=== PATIENT | male | born 1970 | race Caucasian/White ===

== ENCOUNTER 2017-02-01 17:14 | Inpatient (IN) | payer OTHER ==
[~2017-02-01] VITALS: Ht 167.6 cm; Wt 108.9 kg
[~2017-02-01 17:14] MED LIST: ACETAMINOPHEN500 M4 PO; ATIVAN 2 MG. TAB2 MG PO; ATIVAN0.5 MG PO; CEFTRIAXON2 GM/50 M1 IV; CEFTRIAXONE500 MG IV; CYCLOBENZAPRINE10 M1 PO; CYCLOBENZAPRINE5 M2 PO; FERROUS SULFAT325 M3 PO; FOLIC ACID 1 MG PO; FOLIC ACID1 M1 PO; HYDROXYZINE HCL25 M2 PO; IBUPROFEN800 M1 PO; LIDODERM1 EACH EXT; LISINOPRIL20 M1 PO; LISINOPRIL20 MG PO; METFORMIN HCL500 M3 PO; METFORMIN500 MG PO; METOPROLOL TART25 M1 PO; MORPHINE S10 MG/1 M1 IV; MULTI-DAY VITA1 EACH PO; MULTIVITAMIN1 TAB PO; NALTREXONE HCL50 M1 PO; NOVOLOG100 UNIT/2 SC; ONGLYZA5 M1 PO; ONGLYZA5 MG PO; OXYCODONE HCL5 M1 PO; OXYCODONE-ACET1 EACH PO; PAROXETINE HCL20 M1 PO; PAROXETINE20 MG PO; PERCOCET 5-3251 EACH PO; PREDNISONE10 M2 PO; PREDNISONE20 M1 PO; SIMVASTATIN40 M1 PO; SIMVASTATIN40 MG PO; THIAMINE HCL50 M1 PO; TRAMADOL HCL50 M1 PO; VITAMIN B1100 MG PO; ZOLPIDEM TARTRAT5 MG PO; [UNRECOGNIZED DRUG - CODE] IV
--- NOTE | 2017-02-01 17:21 | NUR ---
PT BIBA FROM HOME AFTER BEING FOUND UNRESPONSIVE ON THE FLOOR OF HIS HOME. PT A&O 3/4, GCS 14. PT DOES NOT REMEBER THE INCIDENT NOR EVENTS LEADING UP TO. DENIED HISTORY OF SIEZURE AND SYNCOPAL EPISODES. DENIED HAVING ANY COMPLAINTS. NO OBVIOUS TRAUMATIC INJURY NOTED. PT ADMITTED TO DRINKING MULTIPLE BEERS. DENIED ILLICIT DRUG USE. ROMINA KNOX AT BEDSIDE FOR EVAL.
[2017-02-01 17:23] VITALS: BP 101/59
--- NOTE | 2017-02-01 17:34 | ED AMS/SEIZURE/WEAK/DIZZY ---
History of Present Illness General Chief Complaint: Altered Mental Status Stated Complaint: UNRESPONSIVE? AT HOME, NOW ALERT Source: patient, EMS Exam Limitations: no limitations Vital Signs & Intake/Output Vital Signs & Intake/Output Vital Signs Date Time Temp Pulse Resp B/P B/P Pulse O2 O2 Flow FiO2 Mean Ox Delivery Rate 02/03 1558 98.0 106 18 128/84 93 05/ 0844 104 132/90 05/ 0840 104 132/90 05/ 0800 98.5 98 22 142/90 93 Room Air 02/03 0600 120 05/ 0400 98.4 120 17 124/78 05/ 0301 120 17 134/76 05/ 0230 122 05/ 0000 96 Room Air 2.0L 02/02 2300 98.4 122 20 138/76 97 Room Air 02/02 2100 125 / 2000 120 20 130/78 ED Intake and Output 02/03 0000 02/02 1200 Intake Total 2394.0 2080 Output Total 800 Balance 2394.0 1280 Intake, IV 1599.0 1600 Intake, Oral 795 480 Output, Urine 800 Allergies Coded Allergies: No Known Allergies (05/04/16) Reconcile Medications Cyclobenzaprine HCl (Unknown Strength) TABLET (Unknown Dose) UNKNOWN ( Reported) Ferrous Sulfate 325 MG TABLET 325 MG PO DAILY VITAMIN SUPPORT (Reported) Lisinopril 20 MG TABLET 20 MG PO DAILY HIGH BLOOD PRESSURE (Reported) Metformin HCl 1,000 MG TABLET 1 TAB PO BID DM (Reported) Multivitamin (Multi-Day Vitamins) 1 EACH TABLET 1 TAB PO DAILY VITAMIN SUPPORT (Reported) Paroxetine HCl 20 MG TABLET 20 MG PO DAILY DEPRESSION (Reported) Saxagliptin (Onglyza) 5 MG TABLET 5 MG PO DAILY DIABETES (Reported) Simvastatin (Simvastatin*) 40 MG TABLET 40 MG PO DAILY HIGH CHOLESTROL ( Reported) Triage Note: PT CHLOE FROM HOME AFTER BEING FOUND UNRESPONSIVE ON THE FLOOR OF HIS HOME. PT A&O 3/4, GCS 14. PT DOES NOT REMEBER THE INCIDENT NOR EVENTS LEADING UP TO. DENIED HISTORY OF SIEZURE AND SYNCOPAL EPISODES. DENIED HAVING ANY COMPLAINTS. NO OBVIOUS TRAUMATIC INJURY NOTED. PT ADMITTED TO DRINKING MULTIPLE BEERS. DENIED ILLICIT DRUG USE. ROMINA KNOX AT BEDSIDE FOR EVAL. Triage Nurses Notes Reviewed? yes Onset: Abrupt Duration: day(s): (1), better, constant Timing: recent history Injury Environment: home Severity: moderate Severity Numbers: 1 No Modifying Factors: none Associated Symptoms: denies HPI: 46 Year old male with history of diabetes, history of alcohol abuse and anxiety /depression, discitis/osteomyelitis at L3-L4 presents to the ER after he was found unresponsive on the floor of his home. On arrival the pt arrives awake and oriented x 3. he denies any complaints. no history of similar episodes in thep ast. he reports to having 3 beers today, he denies any other drug use. the patient does not remember passing out. no chest pain, palpitaitons, dizziness, lightheadedness, ventura, nausea vomiting, abdominal pain. the patient denies any complaints at this time, he states he was in his normal state of health today. no history of withdrawal seizures in the past. no recent black or bloody stools (ALAN SWENSON) Past History Travel History Traveled to [place] past 21 day No Medical History Any Pertinent Medical History? 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 No (ALAN SWENSON) Review of Systems Review of Systems Constitutional: Reports: see HPI. All Other Systems: Reviewed and Negative Comments Review of systems: See HPI, All other systems negative. Constitutional, no chills no fever, no malaise no weight loss HEENT: No visual changes no sore throat no congestion, no ear pain Cardiovascular: No chest pain , no palpitation Skin: no rashes, no change in skin Respiratory: No dyspnea no cough no sputum GI: No nausea no vomiting, no diarrhea, no bloating/constipation : No dysuria No hematuria, no frequency, no discharge Muscle skeletal: No joint pain, no joint swelling, no back pain Neurologic: No numbness no headache Psych: No stress Heme/endocrine: No bruising Immunology: No lymphadenopathy (ALAN SWENSON) Physical Exam Physical Exam General Appearance: well developed/nourished, alert, awake Comments: Well-developed well-nourished person in no acute distress HEENT: Normal EENT exam; PERRL, EOMI, no nystagmus. HEAD is atraumatic. moist mucous membranes. Neck: Supple,normal range of motion Back: Nontender, no CVA tenderness. Full range of motion Cardiovascular: Regular rate and rhythms no murmurs rubs Respiratory: Chest nontender.There were no bony deformities, no asymmetry. No respiratory distress. Patient speaking in full complete sentences. Breath sounds clear to auscultation bilaterally: NO W/R/R Abdomen: Soft, nontender nondistended, no appreciable organomegaly. Normal bowel sounds. No rebound/guarding, No appreciable enlargement of the abdominal aorta, No ascites. Extremity: No edema, full range of motion of extremities, normal and equal pulses bilaterally, 5 out of 5 strength noted to bilateral upper and lower extremities Neuro: Alert oriented x3, motor sensory normal, cranial nerves II through XII grossly intact. There were no obvious focal neurologic abnormalities. Skin: No appreciable rash on exposed skin, skin is warm and dry. Psych: Mood and affect is normal, memory and judgment is normal. Core Measures ACS in differential dx? Yes CVA/TIA Diagnosis: No Severe Sepsis Present: No Septic Shock Present: No (ALAN SWENSON) Progress Differential Diagnosis: SYNCOPE DRUG INTOXICATION ALCOHOL INTOXICATION ELECTROLYTE ABNORMALITY DEHYDRATION ACUTE mi ARRHYTHMIA Plan of Care: Orders Procedure Date/time Status MAGNESIUM 02/04 06 Active HEPATIC FUNCTION PANEL 02/04 06 Active BASIC ELECTROLYTES PLUS BUN&CR 02/04 06 Active Turn and Reposition 02/03 0930 Active Skin Integrity Protocol 02/03 0930 Active URINALYSIS 02/03 0747 Complete Therapeutic Exercise 02/03 UNK Complete PT EVAL LOW COMPLEX 20 MIN 02/03 UNK Complete Gait Training 02/03 UNK Complete Restraint- Medical 02/03 UNK Active PSYCHIATRIC CONSULT 02/03 UNK Active Current Medications Sig/Diogo Start time Last Medication Dose Stop Time Status Admin Tramadol HCl 50 MG Q6 PRN 02/02 1730 AC 02/03 (Ultram) 0038 Acetaminophen 650 MG Q6P PRN 02/02 1715 AC (Tylenol) Enoxaparin Sodium 40 MG DAILY 02/02 1000 AC 02/03 (Lovenox) 0837 Ferrous Sulfate 325 MG DAILY 02/02 1000 AC 02/03 (Feosol) 0837 Folic Acid 1 MG DAILY 02/02 1000 AC 02/03 (Folic Acid) 0837 Lisinopril 20 MG DAILY 02/02 1000 AC 02/03 (Prinivil) 0844 Multivitamins 1 TAB DAILY 02/02 1000 AC 02/03 (Theragran Vitamins) 0838 Paroxetine HCl 20 MG DAILY 02/02 1000 AC 02/03 (Paxil) 0838 Thiamine HCl 100 MG DAILY 02/02 1000 AC 02/03 (Vitamin B1) 0838 Lorazepam 0 Q1P PRN 02/02 0830 AC 02/03 (Ativan) 1217 Insulin Aspart 0 TIDAC 02/02 0800 AC 02/02 (NovoLOG) 1702 Phenol 2 SPRAY Q2P PRN 02/02 0100 AC 02/02 (Chloraseptic 0201 (Phenaseptic) Hughson) Lorazepam 2 MG Q6H 02/01 2115 AC 02/03 (Ativan) 1639 Laboratory Tests 02/03/17 0700: Urine Color YEL, Urine Clarity CLEAR, Urine pH 6.5, Ur Specific Louise 1.010, Urine Protein NEG, Urine Ketones TRACE H, Urine Nitrite NEG, Urine Bilirubin NEG@ICTO, Urine Urobilinogen 2.0 H, Ur Leukocyte Esterase NEG, Ur Microscopic EXAM NOT REQUIRED, Urine Hemoglobin NEG, Urine Glucose NEG 02/03/17 0636: Anion Gap 10, Estimated GFR > 60, BUN/Creatinine Ratio 7.5, Magnesium 1.7, Total Bilirubin 4.2 H, Direct Bilirubin 2.3 H, AST 307 H, ALT 139 H, Alkaline Phosphatase 105, Total Protein 6.0 L, Albumin 2.7 L Microbiology 02/03 07 URINE ROUT: Urine Culture - RECD Labs ordered old records reviewed case discussed with Dr. Vo agrees with plan D/W THE PT AT [facility] ALL OF HIS LAB RESULTS AND NEED FOR ADMISSION. SODIUM 129 IS NEW, PT REPORTS TO NOT EATING TODAY AND HAD "A FEW BEERS" (LISETTE VANEGAS,ALAN) Diagnostic Imaging: Viewed by Me: CT Scan. Discussed w/RAD: CT Scan. Radiology Impression: PATIENT: DEBRA GORDILLO JR PRESENT AGE: 46 PATIENT ACCOUNT NO: [id number] : 68 LOCATION: [facility] ORDERING PHYSICIAN: ALAN VANEGAS SERVICE DATE: 02/01/17 EXAM TYPE: CAT - CT ABD & PELVIS W IV CONTRAST EXAMINATION: CT ABDOMEN AND PELVIS WITH CONTRAST CLINICAL INFORMATION: Syncope, elevated LFTs. Evaluate for liver pathology. COMPARISON: Most recent lumbar spine MRI dated 07/31/2016. TECHNIQUE: Multidetector volumetric imaging was performed of the abdomen and pelvis before and after the IV administration of 94 mL of Optiray 320 intravenous contrast. Sagittal and coronal reformatted images were obtained on the technologist's workstation. DLP: 1115.77 mGy-cm. FINDINGS: LUNG BASES: The visualized lung bases are unremarkable. LIVER, GALLBLADDER, AND BILIARY TREE: The liver is normal in size and shape. The liver is diffusely hypodense and hypoenhancing, consistent with fatty infiltration. No focal hepatic lesion or biliary ductal dilatation is present. The gallbladder is unremarkable with no evidence of radiopaque gallstones, gallbladder wall thickening, or obvious pericholecystic inflammatory changes. PANCREAS: Unremarkable. SPLEEN: Unremarkable. There is a 7 mm probable splenule. ADRENAL GLANDS: Unremarkable. KIDNEYS AND URETERS: The kidneys are normal in size, shape, and attenuation. A 1.5 cm probable cyst is seen within the midpole of the left kidney. No hydronephrosis, hydroureter, or calculi seen. There is mild nonspecific bilateral perinephric stranding. BLADDER : Nondistended. GASTROINTESTINAL TRACT: Postsurgical changes related to a Mikey- en-Y gastric bypass are noted. Fluid is noted within the excluded stomach, which could represent a communication with the surgically-created gastric pouch. A fluoroscopic upper GI examination could be considered to help further evaluate if clinically indicated. There is no large or small bowel obstruction. There are a few scattered sigmoid colon diverticula without adjacent inflammatory change. The appendix is unremarkable. There is no intra-abdominal free air or free fluid. ABDOMINAL WALL: There is a small periumbilical hernia. LYMPH NODES: Normal. VASCULAR: Contrast opacifies the abdominal aorta and its branch vessels. There is no abdominal aortic dilatation. PELVIC VISCERA: The prostate and seminal vesicles are unremarkable. OSSEOUS STRUCTURES: There is osseous erosion at the anterior aspect of L4 as well as at the posterior aspect of L3, with associated degenerative changes. These findings are consistent with the patient' s history of discitis osteomyelitis, and do not appear significantly changed when compared to the prior examination. There is no associated soft tissue mass or fluid collection. IMPRESSION: 1. Fatty infiltration of the hepatic parenchyma. No hepatic lesion identified. No intrahepatic or extrahepatic biliary ductal dilatation. 2. No hydronephrosis or nephrolithiasis. 3. Mikey-en-Y gastric bypass. Fluid within the excluded stomach, which could represent a communication with the surgically-created gastric pouch. A fluoroscopic upper GI examination could be considered to help further evaluate if clinically indicated. 4. No large or small bowel obstruction. Normal appendix. 5. Osseous changes at L3-L4, consistent with the patient's history of discitis/ osteomyelitis. No associated soft tissue fluid collection or mass. DICTATED BY: RICARDA RAMACHANDRAN MD DATE/TIME DICTATED:02/01/171945 [employer] ATTENDANT:OLGA DATE/TIME TRANSCRIBED:02/01/171945 CONFIDENTIAL, DO NOT COPY WITHOUT APPROPRIATE AUTHORIZATION. <Electronically signed in Other Vendor System> SIGNED BY: RICARDA RAMACHANDRAN MD 02/01/172006 Initial ED EKG: normal intervals, normal p-waves, normal QRS complex, normal sinus rhythm Prior EKG: unchanged Rhythm Strip: normal sinus rhythm (ALAN SWENSON) Departure Departure Time of Disposition: 1945 Disposition: STILL A PATIENT Condition: Stable Clinical Impression Primary Impression: Alcoholic ketosis Secondary Impressions: Alcoholic hepatitis, Hyponatremia, Lactic acidosis Referrals: ALO BELL,MARIO Reyes (PCP/Family) Departure Forms: Customer Survey General Discharge Information Admission Note Spoke With: NATHALIE BELL,GRADY Tate Documentation of Exam: Documentation of any treatments & extenuating circumstances including Concerns Regarding Discharge (functional status, medication knowledge or non-compliance, living conditions, etc.) that warrant an admission rather than observation: TREND LABS, TELEL MONITORING, GI CONSULT, PREMATURE DISCHARGE WOULD BE MEDICALLY HARMFUL (ALAN SWENSON) PA/SIZE STAMPER Co-Sign Statement Statement: ED Attending supervision documentation- [X] I saw and evaluated the patient. I have also reviewed all the pertinent lab results and diagnostic results. I agree with the findings and the plan of care as documented in the PA's/SIZE STAMPER's documentation. [X] I have reviewed the ED Record and agree with the PA's/SIZE STAMPER's documentation. [] Additions or exceptions (if any) to the PAs/SIZE STAMPER's note and plan are summarized below: [] (SHANEL BELL,MADHAV Bryant)
--- NOTE | 2017-02-01 18:01 | NUR ---
BLOOD SAMPLES OBTAINED AND SENT TO LAB ([facility])
[2017-02-01] MEDS ORDERED: METFORMIN HCL1000 M1 PO (18:04)
[2017-02-01] MEDS ORDERED: CYCLOBENZAPRINE10 M1 (18:05)
[2017-02-01 18:48] LABS: ABSOLUTE BASOPHIL COUNT 0 /CUMM (0.0-0.2); ABSOLUTE EOSINOPHIL COUNT 0 /CUMM (0.0-0.7); ABSOLUTE LYMPH COUNT 1.8 /CUMM (1.2-3.4); ABSOLUTE MONOCYTE COUNT 0.4 /CUMM (0.10-0.60); BASOPHIL % 0.3 % (0.0-2.0); EOSINOPHIL % 0.1 % (0-5); GRANULOCYTE % 57.3 % (42.2-75.2); MEAN CORPUSCULAR HGB CONC 34.3 G/DL (33.0-37.0); MEAN CORPUSCULAR VOLUME 84.5 FL (80.0-94.0); PLATELET COUNT 141 /CUMM (130-400); RBC DISTRIBUTION WIDTH 19.1 % (11.5-14.5); WHITE BLOOD CELL COUNT 5.2 /CUMM (4.8-10.8)
--- NOTE | 2017-02-01 18:56 | NUR ---
20G IV ESTABLISHED IN L[facility]. BLOOD SAMPLES OBTAINED AND SENT TO LAB ([facility]). PT TO CT VIA STRETCHER
--- NOTE | 2017-02-01 19:44 | NUR ---
CRITICAL TEST RESULTS [id number] DEBRA GORDILLO JR 46 M TESTS AND RESULTS: LACTIC 9.3 Results received and read back by: NICOLE CRONIN Results received date and time: 02/01/171943 The following provider was notified of the results, and read the results back: ROMINA DE LA CRUZ Notified date and time: 02/01/17 at 1944
[2017-02-01 19:46] VITALS: BP 106/53
--- NOTE | 2017-02-01 19:46 | NUR ---
PT RETURNED FROM CAT SCAN. NS INFUSING. PT CIWA 5 AT THIS TIME, WILL CONTINUE TO MONITOR.
--- NOTE | 2017-02-01 19:56 | NUR ---
PT HAS BED ASSIGNMENT 183-1. BED IS NOT CLEAN YET.
--- NOTE | 2017-02-01 20:07 | CT SCAN REPORT ---
EXAMINATION: CT ABDOMEN AND PELVIS WITH CONTRAST CLINICAL INFORMATION: Syncope, elevated LFTs. Evaluate for liver pathology. COMPARISON: Most recent lumbar spine MRI dated 07/31/2016. TECHNIQUE: Multidetector volumetric imaging was performed of the abdomen and pelvis before and after the IV administration of 94 mL of Optiray 320 intravenous contrast. Sagittal and coronal reformatted images were obtained on the technologist's workstation. DLP: 1115.77 mGy-cm. FINDINGS: LUNG BASES: The visualized lung bases are unremarkable. LIVER, GALLBLADDER, AND BILIARY TREE: The liver is normal in size and shape. The liver is diffusely hypodense and hypoenhancing, consistent with fatty infiltration. No focal hepatic lesion or biliary ductal dilatation is present. The gallbladder is unremarkable with no evidence of radiopaque gallstones, gallbladder wall thickening, or obvious pericholecystic inflammatory changes. PANCREAS: Unremarkable. SPLEEN: Unremarkable. There is a 7 mm probable splenule. ADRENAL GLANDS: Unremarkable. KIDNEYS AND URETERS: The kidneys are normal in size, shape, and attenuation. A 1.5 cm probable cyst is seen within the midpole of the left kidney. No hydronephrosis, hydroureter, or calculi seen. There is mild nonspecific bilateral perinephric stranding. BLADDER: Nondistended. GASTROINTESTINAL TRACT: Postsurgical changes related to a Mikey-en-Y gastric bypass are noted. Fluid is noted within the excluded stomach, which could represent a communication with the surgically-created gastric pouch. A fluoroscopic upper GI examination could be considered to help further evaluate if clinically indicated. There is no large or small bowel obstruction. There are a few scattered sigmoid colon diverticula without adjacent inflammatory change. The appendix is unremarkable. There is no intra-abdominal free air or free fluid. ABDOMINAL WALL: There is a small periumbilical hernia. LYMPH NODES: Normal. VASCULAR: Contrast opacifies the abdominal aorta and its branch vessels. There is no abdominal aortic dilatation. PELVIC VISCERA: The prostate and seminal vesicles are unremarkable. OSSEOUS STRUCTURES: There is osseous erosion at the anterior aspect of L4 as well as at the posterior aspect of L3, with associated degenerative changes. These findings are consistent with the patient's history of discitis osteomyelitis, and do not appear significantly changed when compared to the prior examination. There is no associated soft tissue mass or fluid collection. IMPRESSION: 1. Fatty infiltration of the hepatic parenchyma. No hepatic lesion identified. No intrahepatic or extrahepatic biliary ductal dilatation. 2. No hydronephrosis or nephrolithiasis. 3. Mikey-en-Y gastric bypass. Fluid within the excluded stomach, which could represent a communication with the surgically-created gastric pouch. A fluoroscopic upper GI examination could be considered to help further evaluate if clinically indicated. 4. No large or small bowel obstruction. Normal appendix. 5. Osseous changes at L3-L4, consistent with the patient's history of discitis/osteomyelitis. No associated soft tissue fluid collection or mass.
--- NOTE | 2017-02-01 20:15 | NUR ---
BANANA BAG INFUSING.
--- NOTE | 2017-02-01 20:21 | NUR ---
REPORT GIVEN TO SALEEM COLVIN ON TELEMETRY.
--- NOTE | 2017-02-01 20:36 | History & Physical ---
REMI BELL,[facility] 02/01/172034: General Information and [facility] MD Statement: I have seen and personally examined DEBRA RENEE JR and documented this H&P. The patient is a 46 year old M who presented with a patient stated chief complaint of [was found unresponsive on the floor]. Source of Information: patient, old records Exam Limitations: no limitations History of Present Illness: Mr. Renee is a 46 year-old very pleasant male with past medical history significant for diabetes mellitus, alcohol abuse, anxiety, depression, gastric bypass 13 years ago, discitis/ spinal osteomyelitis L3L4 was on IV antibiotic last dose 07/24/2016, who BIBA after was found unresponsive on the floor at home. Patient reported that since the morning today he felt very lethargic and fatigue , he went outside to bring some grocery for his kids (2 boys 12 autism and 13 ADDH year old) when he came back he dropped something on the floor and leant forward to grab it and at that time he lost his consciousness, he denied any head trauma, seizure activity, bladder or stool incontinence. Patient was found by his son Ricardo who called the patient's parent (live upstairs) and the mother called ambulance. Patient denied any previous history of unconsciousness, seizure including alcohol related seizure. Patient has extensive history of alcohol abuse associated with visual hallucinations, used to drink 30 cans of beer daily, last detoxification was last year at [facility], patient was sober since last discharge January until August 2016 when he restarted to drink but cut down to 5-6 beer per day. His last drink was today 02/01/17 at 2 PM in afternoon 6 beers despite feeling lethargic. Patient is never a smoker, denied drug use although he was zolpidem addict and quit in 2012. Patient denied taking any other medication except the prescribed ones. Patient denied any chest pain, palpitation, headache, visual changes, weakness or numbness, abdominal pain, nausea or vomiting, liver disease, dysuria. Patient reported productive cough of clear sputum, denied blood, left lower extremity swelling. Patient has past medical history of left lower extremity swelling that subsided after he stopped drinking and started again when he started drinking in August 2016. Patient has ongoing life stressor being unemployed, his children illness, taking care of his elderly parents. Allergies/Medications Allergies: Coded Allergies: No Known Allergies (05/04/16) Home Med list Cyclobenzaprine HCl (Unknown Strength) TABLET (Unknown Dose) UNKNOWN ( Reported) Ferrous Sulfate 325 MG TABLET 325 MG PO DAILY VITAMIN SUPPORT (Reported) Lisinopril 20 MG TABLET 20 MG PO DAILY HIGH BLOOD PRESSURE (Reported) Metformin HCl 1,000 MG TABLET 1 TAB PO BID DM (Reported) Multivitamin (Multi-Day Vitamins) 1 EACH TABLET 1 TAB PO DAILY VITAMIN SUPPORT (Reported) Paroxetine HCl 20 MG TABLET 20 MG PO DAILY DEPRESSION (Reported) Saxagliptin (Onglyza) 5 MG TABLET 5 MG PO DAILY DIABETES (Reported) Simvastatin (Simvastatin*) 40 MG TABLET 40 MG PO DAILY HIGH CHOLESTROL ( Reported) Past History Travel History Traveled to [place] past 21 day No Medical History Neurological: spinal osteomyelitis at L3-L4 level EENT: NONE Cardiovascular: hypertension, hyperlipidemia Respiratory: NONE Gastrointestinal: NONE Hepatic: NONE Renal: NONE Musculoskeletal: CARPAL TUNNEL Psychiatric: alcohol dependence, anxiety, depression Endocrine: diabetes Blood Disorders: NONE Cancer(s): NONE SHAPER AND PRESSER/Reproductive: NONE History of MRSA: No History of VRE: No History of CDIFF: No Surgical History Surgical History: GASTRIC BYPASS ABDOMINOPLASTY carpal tunnel Past Family/Social History Family History Relations & Conditions if any MOTHER FH: diabetes mellitus FH: hyperlipidemia FH: hypertension FATHER FH: hypertension Psychosocial History Who Do You Live With? child Services at Home: None ETOH Use: alcoholic Illicit Drug Use: denies illicit drug use Functional Ability ADLs Independent: dressing, eating, toileting, bathing. Ambulation: independent, walker IADLs Independent: shopping, housework, finances, food prep, telephone, transportation , medication admin. Employment History Employment Unemployed Review of Systems Review of Systems Constitutional: Reports: see HPI. Exam & Diagnostic Data Last 24 Hrs of Vital Signs/I&O Vital Signs Date Time Temp Pulse Resp B/P B/P Pulse O2 O2 Flow FiO2 Mean Ox Delivery Rate 02/01 2135 98.0 118 20 130/78 02/01 2058 98.6 118 20 130/64 97 Room Air 02/01 1946 77 20 106/53 02/01 1945 77 20 10653 97 Room Air 02/01 1723 96.2 110 20 101/59 02/01 1723 96.2 110 20 101/59 99 Room Air Physical Exam General Appearance Alert, Oriented X3, Cooperative, No Acute Distress Skin No Rashes, No Breakdown, No Significant Lesion Skin Temp/Moisture Exam: Warm/Dry HEENT Atraumatic, PERRLA, EOMI, Mucous Membr. moist/pink, dilated reactive bilateral pupils Neck Supple, No JVD Lymphatic no cervical lymphadenopathy Cardiovascular Regular Rate, Normal S1, Normal S2, No Murmurs, tachycardia Lungs Clear to Auscultation, Normal Air Movement Abdomen Normal Bowel Sounds, Soft, No Tenderness Neurological Normal Gait, Normal Speech, Strength at 5/5 X4 Ext, Normal Tone, Sensation Intact, Cranial Nerves 3-12 NL, Reflexes 2+, bilateral fine tremors Extremities No Clubbing, No Cyanosis, No Edema, Normal Pulses, left leg slightly larger than right leg Assessment/Plan Assessment: Mr. Renee is a 46 year-old very pleasant male with past medical history significant for diabetes mellitus, alcohol abuse associated with visual hallucination, no history of alcohol-related seizure, anxiety, depression, discitis/osteomyelitis L3L4 was on IV antibiotic last dose 07/24/2016 who BIBA after was found unresponsive on the floor at home. Last alcohol drink was 02/01 on day of admission 2 PM afternoon 6 beers. On admission Vital signs temperature 96.2, pulse 110, respiration 20 with saturation 99% on room air, blood pressure 101/59 Labs WBC 5.2, H&H 13.1/38, platelet 141, sodium 129, potassium 4, chloride 90, bicarbonate 16, anion gap 23, BUN 11/creatinine 1.2, sugar 196, serum osmolality 345, lactic acid 9.3, calcium 8, AST 555, ALT 171, bilirubin 2 alkaline phosphatase 120, albumin 3.3, troponin less than 0.01, are mainly is 42, lipase 346, urine toxicology serum alcohol 246, acetone level negative Imaging CT abdomen and pelvis with IV contrast on 02/01/70 IMPRESSION: 1. Fatty infiltration of the hepatic parenchyma. No hepatic lesion identified. No intrahepatic or extrahepatic biliary ductal dilatation. 2. No hydronephrosis or nephrolithiasis. 3. Mikey-en-Y gastric bypass. Fluid within the excluded stomach, which could represent a communication with the surgically-created gastric pouch. A fluoroscopic upper GI examination could be considered to help further evaluate if clinically indicated. 4. No large or small bowel obstruction. Normal appendix. 5. Osseous changes at L3-L4, consistent with the patient's history of discitis/ osteomyelitis. No associated soft tissue fluid collection or mass. Problem list #Syncope #Alcohol abuse associated with lactic acidosis mostly type 2 #Elevated liver enzymes #Hyponatremia #Diabetes mellitus #Anxiety and depression #Chronic anemia due to alcoholism Plan: Admit to telemetry floor and managed the following problems #Syncope -Etiology could be alcohol versus vasa vagal due to dehydration -Patient has elevated lactic acid which mostly because of alcohol. Patient was found to have dry mucous membranes on examination but no signs of cold extremity or altered mental status that might suggest severe hypovolemia that could cause elevated lactic acid -No history of seizure including alcohol-related seizure, no reports for seizure -like activity, urine or stool incontinence, head trauma -On presentation patient was found to have tachycardia 110 and low blood pressure 101/59 -IV fluid resuscitation with normal saline at 150 mL/h -Fall precaution -Obtain orthostatic measurement #Alcohol abuse -Extensive history of alcohol abuse, Last drink was 02/01 on day of admission 2 PM afternoon 6 beers. -Urine toxicology positive for alcohol, lactic acidosis 9.3, anion gap elevated 23 -Ativan 2 mg Q 4 -CIWA for prn Ativan -Banana bag, thiamine, folic acid and multivitamin -Obtain vitamin B12 level -Trend lactic acid Q3 hours -Elevated liver enzymes AST, ALT, bilirubin, low albumin -Check coagulation profile -Elevated lipase -CT abdomen pelvis with contrast revealed fatty liver and unremarkable pancreas study -Repeat liver function tests and lipase amylase in a.m. -Avoid hepatotoxic medication including statin #Diabetes mellitus associated with hyponatremia -Glucose 196, sodium 129 -Corrected sodium 131 -IV fluid normal saline at rate of 150 mL/h, avoid correcting sodium more than 6 -8 points per 24-hour -Urine negative for ketones -Accu-Chek -NovoLog sliding scale 3 times a day before meals and bedtime -Obtain hemoglobin A1c -Continue lisinopril #Anxiety and depression -Continue home dose paroxetine 20 mg daily -In presence of current stressor, obtain psych evaluation #Chronic anemia due to alcoholism -Continue ferrous sulfate 325 mg daily -Guaiac stool #Code full #DVT prophylaxis lovenox #Diet diabetic diet As Ranked By This Provider Problem List: 1. Alcohol intoxication 2. Depression 3. Hyperlipidemia 4. Lactic acidosis 5. Alcoholic hepatitis 6. Hyponatremia Core Measures/Miscellaneous Acute Coronary Syndrome ACS Diagnosis: No Cerebrovascular Accident CVA/TIA Diagnosis: No Congestive Heart Failure CHF Diagnosis: No Venous Thromboembolism VTE Risk Factors: Age > 40 No [facility] V[facility] prophylaxis d/t: No contraindications No VTE Pharm Prophylaxis d/t: No contraindications VTE Diagnosis: No VTE Type: NONE VTE Confirmed by (Test): NONE Severe Sepsis Severe Sepsis Present: No Septic Shock Septic Shock Present: No Miscellaneous Documentation Attending Case Discussed With: NATHALIE BELL,GRADY Tate Primary Care Physician: MARIO PRAJAPATI MD Patient sees these Specialists Primary care physician Level of Patient Care: Telemetry CAMPOLINDA 02/01/172035: Resident Review Statement Resident Statement: examined this patient, discussed with internal medicine physician assistant, agreed with internal medicine physician assistant Other Findings: is a 46 yo man with PMHx. significant for diabetes, HTN, HLD, chronic back pain, history of alcohol abuse and anxiety/depression, discitis/ osteomyelitis at L3-L4 presented to ED after being found unresponsive. Patient dosen't remember the episode, he was found laying on the floor at his home by his kids, who inform his parents who lived in the second floor and 911 notified by them, according to the patient he wokup today am starving for food, he was having dry heaves with a small amount of clear phlegm, he went to kitchen to prepare a meal, he bent to catch a dish fallen on the floor, but he fells and passed out, he mentioned that the duration was not long but couldn't specified, he hit his head but no other body injury. He did lost control on his bowel movement, no incontinence. He report visula hallucination in the form of spider crawling on his legs and on the floor. Patient last detox was last year, he remains with no alcohol for about 3 months, but his back issue was acting up again, which causing sever pain, he started drinking again about 5-7 beers a day, he mention that he had alot of stress related to be without job and also related to sickness of his kids, his last drink was today in the afternoon. Patient mntioned history of drinking 30 beers per day prior to his detox at [facility] last year, he cuts down on his alcohol drinking but still he drinks 5-7 beers aday Vitals, examination, Labs and imaging as above Assessment: #Episode of unresponsiveness #Alcohol withdrawal #Lactic acidosis #Transaminitis #Hyponatremia most likely related to malnutrition (Beer protomania) #Depression #Anxiety #Hx. of HTN, HLD #Hx. of DM #Hx. of Rt.foot drop, with nerve conduction issue #Hx. of Osteomyelitis of the back Plan: Will admitt the patient to telemetry floor Will order CIWA protocol Ativan per CIWA 2mg po Q6H Ativan schedulaed dose Will start banana bag Will start IV hydration with iv NS @ 75ml/hr Folic acid, multivitamins Cycle troponin and EKG Will check LFT at am Will check coag. study Will send urinnalysis Will check serum, urine osmolality and urine sodium Will trend lactic acid Will continue home meds (Lisinopril, simvastatin, Paxil) Will hold oral hypoglycemic meds and start insulin sliding scale Achucheck TIDAC/HS Full code DVT ppx: SC Lovenox Update labs: Serum osmolality: 345 Urine osmolality: 394 Urine Na:50 Corrected Na 131mg/dl MILTON BELL,[facility] 02/02/17 2222: Attending MD Review Statement Attending Statement Attending MD Statement: examined this patient, discuss w/resident/PA/FORK LIFT TECHNICIAN, discussed with family, reviewed EMR data (avail), discussed with nursing
[2017-02-01 20:58] VITALS: BP 130/64
[2017-02-01 21:35] VITALS: BP 130/78
--- NOTE | 2017-02-01 22:40 | NUR ---
PT ADMITTED TO FLOOR FROM ER VIA STRETCHER. ORIENTED TO ROOM, CALL RAHMAN, STAFF. ALERT AND ORIENTED X3. RA. SINUS TACH ON THE MONITOR. DENIES PAIN. SKIN CDI. CIWA PROTOCOL. FLUIDS RUNNING ORDERED. WILL CONTINUE TO MONITOR.
[2017-02-01 23:14] LABS: PT 11.1 SEC (9.4-12.5); PTT 29 SEC (25-37)
[2017-02-02] VITALS (20 sets, daily range): BP systolic 120–148; BP diastolic 66–84
--- NOTE | 2017-02-02 09:07 | NUR ---
Physical Therapy: Consult received and chart reviewed. Pt sinus tachycardia in 140's at this time with a CIWA between 16-22. Will defer PT evaluation at this time and follow up as patient is more appropriate. Spoke with pt's nurse who is in agreement.
--- NOTE | 2017-02-02 09:09 | Admission Certification ---
Admission Certification Certification Statement - As attending physician, I certify that at the time of - admission, based on clinical presentation, severity of - symptoms, need for further diagnostic testing and - therapeutic interventions, and risk of adverse outcomes - without in-hospital treatment, in my clinical assessment, - this patient requires an acute hospital stay for a minimum - of two nights or longer. I have also considered psychsocial - factors such as support system, advanced age, financial - issues, cognitive issues, and failed out-patient treatments, - past re-admission history, safety of patient, and lack of - compliance as applicable. Specific rationale supporting this admission is: Alcoholism, syncope
--- NOTE | 2017-02-02 09:23 | PN- Att Addend ---
Attending Addendum Attending Brief Note Patient is a having hallucinations and tremors. General Appearance: Tremors Skin: Grossly normal HEENT: PEERLA Neck: Supple, No JVD Cardiovascular: Regular Rate, Normal S1, Normal S2, No Murmurs Lungs: Clear to Auscultation, Normal Air Movement Abdomen: Normal Bowel Sounds, Soft, No Tenderness Neurological: Tremors Extremities: No Clubbing, No Cyanosis, No Edema Assessment Patient is having acute withdrawals and some hallucinations. He is currently on high-dose Ativan. We will continue to detox and observe. Metabolic acidosis and ketosis likely secondary to plan intoxication and starvation ketosis. Lactic acid level has improved and labs are pending today. Plan Continue Ativan Continue IV hydration Accu-Cheks and insulin sliding scale Psych and director social service evaluation Continue current meds Current Medications Sig/Diogo Start time Last Medication Dose Route Stop Time Status Admin Acetaminophen 650 MG Q12 02/02 1000 AC 02/02 PO 0835 Atorvastatin Calcium 40 MG 1700 02/02 1700 CAN PO Cyanocobalamin/ 1 BAG DAILY 02/02 0300 AC Thiamine/Pyridoxine IV Dextrose/Water 1,000 ML Cyanocobalamin/ 1 BAG ONCE ONE 02/01 1845 DC 02/01 Thiamine/Pyridoxine IV 02/02 0244 2015 Dextrose/Water 1,000 ML Enoxaparin Sodium 40 MG DAILY 02/02 1000 AC 02/02 SC 0907 Ferrous Sulfate 325 MG DAILY 02/02 1000 AC 02/02 PO 0906 Folic Acid 1 MG DAILY 02/01 2100 DC 02/01 PO 2226 Insulin Aspart 0 TIDAC 02/02 0800 AC 02/02 SC 0907 Lisinopril 20 MG DAILY 02/02 1000 AC 02/02 PO 0907 Lorazepam 0 Q1P PRN 02/02 0830 AC 02/02 IV 0907 Lorazepam 1 MG Q1 NEEDED PRN 02/02 0745 DC 02/02 IV 0750 Lorazepam 1 MG Q2 HRS NEEDED PRN 02/02 0630 DC 02/02 IV 0617 Lorazepam 2 MG Q6H 02/01 2115 AC 02/02 PO 0315 Lorazepam 1 MG Q6H PRN 02/01 2115 DC 02/02 IV 0510 Multivitamins 1 TAB DAILY 02/01 2100 DC 02/01 PO 2226 Paroxetine HCl 20 MG DAILY 02/02 1000 AC 02/02 PO 0906 Patient Medication 1 UNIT ONE NR 02/015 DC Teaching ED 02/01 213 Phenol 2 SPRAY Q2P PRN 02/02 0100 AC 02/02 EXT 0201 Sodium Chloride 1,000 ML .[id number] 02/01 2100 AC 02/01 IV 2300 Sodium Chloride 1,000 ML BOLUS ONE 02/01 1845 DC 02/01 IV 02/01 1944 194 Thiamine HCl 100 MG DAILY 02/01 2100 DC PO Laboratory Tests 02/02 02/01 02/01 0440 2302 2230 Chemistry Lactic Acid (0.7 - 2.1 mmol/L) 2.3 H 6.1 H Troponin I (<0.11 ng/ml) 0.02 Urines Urine Color (YEL,AMB,STR) YEL Urine Clarity (CLEAR) CLEAR Urine pH (5.0 - 8.0) 6.0 Ur Specific Cascade (1.001 - 1.035) 1.010 Urine Protein (NEG,<30 MG/DL) NEG Urine Ketones (NEG) NEG Urine Nitrite (NEG) NEG Urine Bilirubin (NEG) NEG Urine Urobilinogen (0.1 - 1.0 EU/dl) 0.2 Ur Leukocyte Esterase (NEG) NEG Ur Microscopic SEDIMENT EXAMINED Urine RBC (0 - 5 /HPF) RARE Ur Epithelial Cells (NONE,FEW) RARE Urine Hemoglobin (NEG) TRACE-INTACT H Urine Glucose (N MG/DL) 100 H 02/010 1853 1758 Chemistry Sodium (137 - 145 mmol/L) 129 L Potassium (3.5 - 5.1 mmol/L) 4.0 Chloride (98 - 107 mmol/L) 90 L Carbon Dioxide (22 - 30 mmol/L) 16 L Anion Gap (5 - 16) 23 H BUN (9 - 20 mg/dL) 11 Creatinine (0.7 - 1.2 mg/dL) 1.2 Estimated GFR (>60 ml/min) > 60 BUN/Creatinine Ratio (7 - 25 %) 9.2 Glucose (65 - 99 mg/dL) 196 H Serum Osmolality (285 - 295 MOSM/KG) 345 H Lactic Acid (0.7 - 2.1 mmol/L) 9.3 H Calcium (8.4 - 10.2 mg/dL) 8.0 L Total Bilirubin (0.2 - 1.3 mg/dL) 2.0 H AST (17 - 59 U/L) 555 H ALT (21 - 72 U/L) 171 H Alkaline Phosphatase (< 127 U/L) 120 Troponin I (<0.11 ng/ml) < 0.01 Total Protein (6.3 - 8.2 g/dL) 6.8 Albumin (3.5 - 5.0 g/dL) 3.3 L Globulin (1.9 - 4.2 gm/dL) 3.5 Albumin/Globulin Ratio (1.1 - 2.2 %) 0.9 L Amylase (30 - 110 U/L) 42 Lipase (23 - 300 U/L) 346 H Coagulation PT (9.4 - 12.5 SEC) 11.1 INR (0.90 - 1.17) 1.06 APTT (25 - 37 SEC) 29 Hematology CBC w Diff NO MAN DIFF REQ WBC (4.8 - 10.8 /CUMM) 5.2 RBC (4.70 - 6.10 /CUMM) 4.50 L Hgb (14.0 - 18.0 G/DL) 13.1 L Hct (42 - 52 %) 38.0 L MCV (80.0 - 94.0 FL) 84.5 MCH (27.0 - 31.0 PG) 29.0 RDW (11.5 - 14.5 %) 19.1 H Plt Count (130 - 400 /CUMM) 141 MPV (7.4 - 10.4 FL) 9.0 Gran % (42.2 - 75.2 %) 57.3 Lymphocytes % (20.5 - 51.1 %) 33.8 Monocytes % (1.7 - 9.3 %) 8.5 Eosinophils % (0 - 5 %) 0.1 Basophils % (0.0 - 2.0 %) 0.3 Absolute Granulocytes (1.4 - 6.5 /CUMM) 3.0 Absolute Lymphocytes (1.2 - 3.4 /CUMM) 1.8 Absolute Monocytes (0.10 - 0.60 /CUMM) 0.4 Absolute Eosinophils (0.0 - 0.7 /CUMM) 0 Absolute Basophils (0.0 - 0.2 /CUMM) 0 PUBS MCHC (33.0 - 37.0 G/DL) 34.3 Toxicology Urine Opiates Screen (>2000 NG/ML) < 100.00 Methadone Screen (>300 NG/ML) 56 Barbiturate Screen (>200 NG/ML) < 60 Ur Phencyclidine Scrn (>25 NG/ML) < 6.00 Amphetamines Screen (>1000 NG/ML) < 100 U Benzodiazepines Scrn (>200 NG/ML) < 85 Urine Cocaine Screen (>300 NG/ML) < 50 Urine Cannabis Screen (>50 NG/ML) < 5.00 Serum Alcohol (<10 MG/DL) 246.0 Acetone Level (NEGATIVE) NEGATIVE Urines Urine Osmolality (300 - 1000 MOSM/KG) 394 Ur Random Creatinine (mg/dL) 45.1 Ur Random Sodium (30 - 90 mmol/L) 50 Ur Random Potassium (mmol/L) 52.7 Fraction Sodium Excret (<1% %) 1.0 Vital Signs Date Time Temp Pulse Resp B/P B/P Pulse O2 O2 Flow FiO2 Mean Ox Delivery Rate 02/02 0907 125 127/66 02/02 0841 100.7 125 16 127/66 94 Room Air 02/02 0835 100.7 / 0800 Room Air 02/02 0800 100.7 129 20 138/72 05/ 0729 129 20 138/72 05/ 0729 129 20 138/72 05/ 0600 98.7 120 20 130/80 05/01 0500 98.9 124 20 134/80 05/01 0400 98.6 122 20 130/80 05/01 0200 98.5 120 20 130/80 05/01 0050 98.8 124 20 140/80 05/01 0017 98.8 122 20 136/80 97 05/01 0000 98.8 120 20 136/80 02/01 2135 98.0 118 20 130/78 02/01 2058 98.6 118 20 130/64 97 Room Air 02/01 1946 77 20 106/53 02/01 1945 77 20 106/53 97 Room Air 02/01 1723 96.2 110 20 101/59 02/01 1723 96.2 110 20 101/59 99 Room Air
--- NOTE | 2017-02-02 09:49 | PN- Housestaff ---
Subjective Follow-up For: Alcohol withdrawal Lactic acidosis Hyperbilirubinemia and Transaminitis Hyponatremia Subjective: This morning patient is alert, awake. He seems confused and hallucinating. Having tremors. He offers no complaints. Review of Systems Constitutional: Reports: see HPI. Objective Last 24 Hrs of Vital Signs/I&O Vital Signs Date Time Temp Pulse Resp B/P B/P Pulse O2 O2 Flow FiO2 Mean Ox Delivery Rate 02/02 0907 125 127/66 05/ 0841 100.7 125 16 127/66 94 Room Air 02/02 0835 100.7 02/02 0800 Room Air / 0800 100.7 129 20 138/72 05/ 0729 129 20 138/72 05/ 0729 129 20 138/72 / 0600 98.7 120 20 130/80 05/ 0500 98.9 124 20 134/80 05/ 0400 98.6 122 20 130/80 05/ 0200 98.5 120 20 130/80 05/ 0050 98.8 124 20 140/80 05/ 0017 98.8 122 20 136/80 97 05/ 0000 98.8 120 20 136/80 02/01 2135 98.0 118 20 130/78 02/018 98.6 118 20 130/64 97 Room Air 02/01 1946 77 20 106/53 02/01 1945 77 20 106/53 97 Room Air 02/01 1723 96.2 110 20 101/59 02/01 1723 96.2 110 20 101/59 99 Room Air Intake & Output 02/02 1600 02/02 0800 02/02 0000 Intake Total 2080 125 Output Total 800 500 Balance 1280 -375 Intake, IV 1600 125 Intake, Oral 480 Output, Urine 800 500 Patient 240 lb Weight Weight Reported by Patient Measurement Method Physical Exam General Appearance: Alert, No Acute Distress, tremulous, sweaty HEENT: dry mucous membranes Neck: Supple Cardiovascular: tachycardia Lungs: Clear to Auscultation Abdomen: Normal Bowel Sounds, Soft, No Tenderness Neurological: Normal Speech, Strength at 5/5 X4 Ext, Sensation Intact, Cranial Nerves 3-12 NL, tremors Extremities: No Edema Current Medications: Current Medications Sig/Diogo Start time Last Medication Dose Route Stop Time Status Admin Acetaminophen 650 MG Q12 02/02 1000 AC 02/02 PO 0835 Atorvastatin Calcium 40 MG 1700 02/02 1700 CAN PO Cyanocobalamin/ 1 BAG DAILY 02/02 0300 AC Thiamine/Pyridoxine IV Dextrose/Water 1,000 ML Cyanocobalamin/ 1 BAG ONCE ONE 02/01 184 DC 02/01 Thiamine/Pyridoxine IV 02/024 2014 Dextrose/Water 1,000 ML Enoxaparin Sodium 40 MG DAILY 02/02 1000 AC 02/02 SC 0907 Ferrous Sulfate 325 MG DAILY 02/02 1000 AC 02/02 PO 0906 Folic Acid 1 MG DAILY 02/01 2100 DC 02/01 PO 2226 Insulin Aspart 0 TIDAC 02/02 0800 AC 02/02 SC 0907 Lisinopril 20 MG DAILY 02/02 1000 AC 02/02 PO 0907 Lorazepam 0 Q1P PRN 02/02 0830 AC 02/02 IV 0907 Lorazepam 1 MG Q1 NEEDED PRN 02/02 0745 DC 02/02 IV 0750 Lorazepam 1 MG Q2 HRS NEEDED PRN 02/02 0630 DC 02/02 IV 0617 Lorazepam 2 MG Q6H 02/01 2115 AC 02/02 PO 0315 Lorazepam 1 MG Q6H PRN 02/01 211 DC 02/02 IV 0510 Multivitamins 1 TAB DAILY 02/01 2100 DC 02/01 PO 2226 Paroxetine HCl 20 MG DAILY 02/02 1000 AC 02/02 PO 0906 Patient Medication 1 UNIT ONE NR 02/01 211 DC Teaching ED 02/01 2130 Phenol 2 SPRAY Q2P PRN 02/02 0100 AC 02/02 EXT 0201 Sodium Chloride 1,000 ML .[id number] 02/01 2100 AC 02/01 IV 2300 Sodium Chloride 1,000 ML BOLUS ONE 02/01 1845 DC 02/01 IV 02/01 194 1943 Thiamine HCl 100 MG DAILY 02/01 2100 DC PO Last 24 Hrs of Lab/Williams Results Last 24 Hrs of Labs/Mics: Laboratory Tests 02/02/17 0440: Lactic Acid 2.3 H, Troponin I 0.02 02/01/17 2302: Lactic Acid 6.1 H 02/01/170: Urine Color YEL, Urine Clarity CLEAR, Urine pH 6.0, Ur Specific [place] 1.010, Urine Protein NEG, Urine Ketones NEG, Urine Nitrite NEG, Urine Bilirubin NEG, Urine Urobilinogen 0.2, Ur Leukocyte Esterase NEG, Ur Microscopic SEDIMENT EXAMINED, Urine RBC RARE, Ur Epithelial Cells RARE, Urine Hemoglobin TRACE- INTACT H, Urine Glucose 100 H 02/01/17 2230: Urine Opiates Screen < 100.00, Methadone Screen 56, Barbiturate Screen < 60, Ur Phencyclidine Scrn < 6.00, Amphetamines Screen < 100, U Benzodiazepines Scrn < 85, Urine Cocaine Screen < 50, Urine Cannabis Screen < 5.00, Urine Osmolality 394, Ur Random Creatinine 45.1, Ur Random Sodium 50, Ur Random Potassium 52.7, Fraction Sodium Excret 1.0 02/01/17 1853: Lactic Acid 9.3 H, PT 11.1, INR 1.06, APTT 29 02/01/17 1758: Anion Gap 23 H, Estimated GFR > 60, BUN/Creatinine Ratio 9.2, Glucose 196 H, Serum Osmolality 345 H, Calcium 8.0 L, Total Bilirubin 2.0 H, AST 555 H, ALT 171 H, Alkaline Phosphatase 120, Troponin I < 0.01, Total Protein 6.8, Albumin 3.3 L, Globulin 3.5, Albumin/Globulin Ratio 0.9 L, Amylase 42, Lipase 346 H, CBC w Diff NO MAN DIFF REQ, RBC 4.50 L, MCV 84.5, MCH 29.0, RDW 19.1 H, MPV 9.0, Gran % 57.3, Lymphocytes % 33.8, Monocytes % 8.5, Eosinophils % 0.1, Basophils % 0.3, Absolute Granulocytes 3.0, Absolute Lymphocytes 1.8, Absolute Monocytes 0.4, Absolute Eosinophils 0, Absolute Basophils 0, PUBS MCHC 34.3, Serum Alcohol 246.0, Acetone Level NEGATIVE Microbiology 02/02 829 URINE ROUT: Urine Culture - ORD 02/02 829 LOWER RESP: Respiratory Culture - ORD 02/02 829 LOWER RESP: Gram Stain - ORD 02/02 2044 BLOOD: Blood Culture - RECD 02/01 2003 BLOOD: Blood Culture - RECD Orders CIWA Score (last 24 hrs): 16 Lines/Diet/Fluids Fluids/Infusions: NS Assessment/Plan Assessment: Mr. Renee is a 46 year-old with past medical history significant for diabetes mellitus, hypertension, hyperlipidemia, alcohol abuse, anxiety, depression, gastric bypass 13 years ago, discitis/ spinal osteomyelitis L3L4 has been admitted on general medicine floor for: Problem list 1. Alcohol detox. Last drink on 02/01/2017. Serum alcohol 246. CIWA score 16 this morning 2. Lactic acidosis secondary to alcohol abuse 3. Hyperbilirubinemia and transaminitis secondary to alcohol abuse 4. Hyponatremia In the setting of hyperglycemia, corrected sodium 131. Plan * Monitor vitals closely * Watch for DTs/withdrawal seizures * Continue CIWA protocol, scheduled Ativan and Ativan as needed per CIWA * Monitor electrolytes daily * Continue IV fluids * Trend lactic acid * Monitor LFTs daily * Monitor sodium levels * farmworker livestock consult * Multivitamins/folic acid/thiamine * Hold statin for now * NovoLog insulin sliding scale while inpatient. Hold metformin and Onglyza * Subcutaneous Lovenox for DVT prophylaxis * Diabetic diet * Accu-Cheks before each meal and at bedtime * Full code Problem List: 1. Alcohol intoxication Pain Ratin Pain Location: none Pain Goal: Remain pain free Pain Plan: tylenol Tomorrow's Labs & Rationales: CMP DVT/Prophylaxis: pharmacological
[2017-02-03 03:01] VITALS: BP 134/76
[2017-02-03 04:00] VITALS: BP 124/78
[2017-02-03 08:00] VITALS: BP 142/90
[2017-02-03 08:40] VITALS: BP 132/90
--- NOTE | 2017-02-03 09:33 | PN- Att Addend ---
Attending Addendum Attending Brief Note Patient is lethargic and sleepy this morning General Appearance: Tremors Skin: Grossly normal HEENT: PEERLA Neck: Supple, No JVD Cardiovascular: Regular Rate, Normal S1, Normal S2, No Murmurs Lungs: Clear to Auscultation, Normal Air Movement Abdomen: Normal Bowel Sounds, Soft, No Tenderness Neurological: Tremors Extremities: No Clubbing, No Cyanosis, No Edema Assessment Patient is having acute withdrawals and some hallucinations. He is currently on high-dose Ativan. We will continue to detox and observe. Metabolic acidosis, ketosis and elevated LFTs likely secondary to acute alcoholic intoxication and starvation ketosis. Plan Continue Ativan Low threshold for ICU transfers if requiring high-dose Ativan Replete potassium Accu-Cheks and insulin sliding scale Psych and social and human services assistant evaluation Continue current meds Current Medications Sig/Idogo Start time Last Medication Dose Route Stop Time Status Admin Acetaminophen 650 MG Q6P PRN 02/02 1715 AC PO Acetaminophen 650 MG Q12 02/02 1000 DC 02/02 PO 0835 Acetaminophen 650 MG Q12P PRN 02/02 0945 DC PO Cyanocobalamin/ 1 BAG DAILY 02/02 0300 DC Thiamine/Pyridoxine IV Dextrose/Water 1,000 ML Enoxaparin Sodium 40 MG DAILY 02/02 1000 AC 02/03 SC 0837 Ferrous Sulfate 325 MG DAILY 02/02 1000 AC 02/03 PO 0837 Folic Acid 1 MG DAILY 02/02 1000 AC 02/03 PO 0837 Insulin Aspart 0 TIDAC 02/02 0800 AC 02/02 SC 1702 Lisinopril 20 MG DAILY 02/02 1000 AC 02/03 PO 0844 Lorazepam 2 MG ONCE ONE 02/02 2345 DC 02/02 IM 02/02 2346 2345 Lorazepam 0 Q1P PRN 02/02 0830 AC 02/03 IV 0235 Lorazepam 2 MG Q6H 02/01 2115 AC 02/03 PO 0839 Multivitamins 1 TAB DAILY 02/02 1000 AC 02/03 PO 0838 Paroxetine HCl 20 MG DAILY 02/02 1000 AC 02/03 PO 0838 Phenol 2 SPRAY Q2P PRN 02/02 0100 AC 02/02 EXT 0201 Sodium Chloride 1,000 ML .Q10H 02/01 2100 DC 02/02 IV 02/02 2009 1211 Thiamine HCl 100 MG DAILY 02/02 1000 AC 02/03 PO 0838 Tramadol HCl 50 MG Q6 PRN 02/02 1730 AC 02/03 PO 0038 Laboratory Tests 02/03 02/03 0700 0636 Chemistry Sodium (137 - 145 mmol/L) 131 L Potassium (3.5 - 5.1 mmol/L) 3.3 L Chloride (98 - 107 mmol/L) 96 L Carbon Dioxide (22 - 30 mmol/L) 25 Anion Gap (5 - 16) 10 BUN (9 - 20 mg/dL) 6 L Creatinine (0.7 - 1.2 mg/dL) 0.8 Estimated GFR (>60 ml/min) > 60 BUN/Creatinine Ratio (7 - 25 %) 7.5 Magnesium (1.6 - 2.3 mg/dL) 1.7 Total Bilirubin (0.2 - 1.3 mg/dL) 4.2 H Direct Bilirubin (< 0.4 mg/dL) 2.3 H AST (17 - 59 U/L) 307 H ALT (21 - 72 U/L) 139 H Alkaline Phosphatase (< 127 U/L) 105 Total Protein (6.3 - 8.2 g/dL) 6.0 L Albumin (3.5 - 5.0 g/dL) 2.7 L Urines Urine Color (YEL,AMB,STR) YEL Urine Clarity (CLEAR) CLEAR Urine pH (5.0 - 8.0) 6.5 Ur Specific [place] (1.001 - 1.035) 1.010 Urine Protein (NEG,<30 MG/DL) NEG Urine Ketones (NEG) TRACE H Urine Nitrite (NEG) NEG Urine Bilirubin (NEG) NEG@ICTO Urine Urobilinogen (0.1 - 1.0 EU/dl) 2.0 H Ur Leukocyte Esterase (NEG) NEG Ur Microscopic EXAM NOT REQUIRED Urine Hemoglobin (NEG) NEG Urine Glucose (N MG/DL) NEG Vital Signs Date Time Temp Pulse Resp B/P B/P Pulse O2 O2 Flow FiO2 Mean Ox Delivery Rate 02/04 844 104 132/90 02/03 0840 104 132/90 02/03 0800 98.5 98 22 142/90 93 Room Air 02/03 0600 120 05/ 0400 98.4 120 17 124/78 02/03 0301 120 17 134/76 02/03 0230 122 05/ 0000 96 Room Air 2.0L 05/01 2300 98.4 122 20 138/76 97 Room Air 05/01 2100 125 05/01 2000 120 20 130/78 05/01 1825 98.3 118 20 120/84 05/01 1800 98.3 118 20 120/84 05/01 1649 99.1 118 20 139/69 94 Room Air 05/01 1600 99.1 118 20 139/69 05/01 1455 98.4 126 20 148/74 05/01 1400 98.4 126 20 148/74 05/01 1200 98.6 137 20 128/76 05/01 1200 98.6 137 20 128/76 05/01 1000 98.0 134 20 124/78 05/01 0934 98.1
--- NOTE | 2017-02-03 13:36 | PN- Housestaff ---
Subjective Follow-up For: Alcohol withdrawal Lactic acidosis Hyperbilirubinemia and Transaminitis Hyponatremia Subjective: Patient was very agitated last night and he was given total of 8 mg of Ativan. This morning he is very confused drowsy, and on bilateral soft restraints. Review of Systems Constitutional: Reports: see HPI. Objective Last 24 Hrs of Vital Signs/I&O Vital Signs Date Time Temp Pulse Resp B/P B/P Pulse O2 O2 Flow FiO2 Mean Ox Delivery Rate 02/03 0844 104 132/90 / 0840 104 132/90 / 0800 98.5 98 22 142/90 93 Room Air / 0600 120 / 0400 98.4 120 17 124/78 / 0301 120 17 134/76 / 0230 122 / 0000 96 Room Air 2.0L 02/02 2300 98.4 122 20 138/76 97 Room Air 02/02 2100 125 / 2000 120 20 130/78 02/02 1825 98.3 118 20 120/84 02/02 1800 98.3 118 20 120/84 02/02 1649 99.1 118 20 139/69 94 Room Air 02/02 1600 99.1 118 20 139/69 02/02 1455 98.4 126 20 148/74 02/02 1400 98.4 126 20 148/74 Intake & Output 02/03 1600 / 0800 02/03 0000 Intake Total 540 1176.5 Output Total 600 Balance -60 1176.5 Intake, IV 300 831.5 Intake, Oral 240 345 Output, Urine 600 Physical Exam General Appearance: confused Cardiovascular: tachycardia Lungs: Clear to Auscultation Extremities: No Edema Current Medications: Current Medications Sig/Diogo Start time Last Medication Dose Route Stop Time Status Admin Acetaminophen 650 MG Q6P PRN 02/02 1715 AC PO Acetaminophen 650 MG Q12P PRN 02/02 0945 DC PO Enoxaparin Sodium 40 MG DAILY 02/02 1000 AC 02/03 SC 0837 Ferrous Sulfate 325 MG DAILY 02/02 1000 AC 02/03 PO 0837 Folic Acid 1 MG DAILY 02/02 1000 AC 02/03 PO 0837 Insulin Aspart 0 TIDAC 02/02 0800 AC 02/02 SC 1702 Lisinopril 20 MG DAILY 02/02 1000 AC 02/03 PO 0844 Lorazepam 2 MG ONCE ONE 02/02 2345 DC 02/02 IM 02/02 2346 2345 Lorazepam 0 Q1P PRN 02/02 0830 AC 02/03 IV 1217 Lorazepam 2 MG Q6H 02/01 2115 AC 02/03 PO 0839 Multivitamins 1 TAB DAILY 02/02 1000 AC 02/03 PO 0838 Paroxetine HCl 20 MG DAILY 02/02 1000 AC 02/03 PO 0838 Patient Medication 1 ED .STK-MED ONE 02/03 1341 DC Teaching ED 02/03 1342 Phenol 2 SPRAY Q2P PRN 02/02 0100 02/02 EXT 0201 Potassium Chloride 60 MEQ ONCE ONE 02/03 1345 UNVr PO 02/03 1346 Sodium Chloride 1,000 ML .Q10H 02/01 2100 DC 02/02 IV 02/02 2009 121 Thiamine HCl 100 MG DAILY 02/02 1000 02/03 PO 0838 Tramadol HCl 50 MG Q6 PRN 02/02 1730 AC 02/03 PO 0038 Last 24 Hrs of Lab/Williams Results Last 24 Hrs of Labs/Mics: Laboratory Tests 02/03/17 0700: Urine Color YEL, Urine Clarity CLEAR, Urine pH 6.5, Ur Specific [place] 1.010, Urine Protein NEG, Urine Ketones TRACE H, Urine Nitrite NEG, Urine Bilirubin NEG@ICTO, Urine Urobilinogen 2.0 H, Ur Leukocyte Esterase NEG, Ur Microscopic EXAM NOT REQUIRED, Urine Hemoglobin NEG, Urine Glucose NEG 02/03/17 0636: Anion Gap 10, Estimated GFR > 60, BUN/Creatinine Ratio 7.5, Magnesium 1.7, Total Bilirubin 4.2 H, Direct Bilirubin 2.3 H, AST 307 H, ALT 139 H, Alkaline Phosphatase 105, Total Protein 6.0 L, Albumin 2.7 L Microbiology 02/03 07 URINE ROUT: Urine Culture - RECD Orders CIWA Score (last 24 hrs): 29 last night 10 this am Assessment/Plan Assessment: Mr. Renee is a 46 year-old with past medical history significant for diabetes mellitus, hypertension, hyperlipidemia, alcohol abuse, anxiety, depression, gastric bypass 13 years ago, discitis/ spinal osteomyelitis L3L4 has been admitted on general medicine floor for: Problem list 1. Alcohol detox. Last drink on 02/01/2017. Serum alcohol 246. CIWA score 16 this morning 2. Lactic acidosis secondary to alcohol abuse 3. Hyperbilirubinemia and transaminitis secondary to alcohol abuse 4. Hyponatremia, sodium 131. 5. Hypokalemia, potassium 3.3 Plan * Monitor vitals closely * Watch for DTs/withdrawal seizures * Low threshold for ICU transfer for Ativan drip if becomes more delirious and high CIWA scores requiring high dose of Ativan * Continue CIWA protocol, scheduled Ativan and Ativan as needed per CIWA * Monitor electrolytes daily and replete accordingly * Monitor LFTs daily * garbage worker consult * Multivitamins/folic acid/thiamine * Holding statin for now * NovoLog insulin sliding scale while inpatient. Holding metformin and Onglyza * Subcutaneous Lovenox for DVT prophylaxis * Diabetic diet * Accu-Cheks before each meal and at bedtime * Full code Problem List: 1. Alcohol intoxication Pain Ratin Pain Location: NONE Pain Goal: Pain 4 or less Pain Plan: tylenol Tomorrow's Labs & Rationales: CMP DVT/Prophylaxis: pharmacological Consulting Request: Consulting Specialty: Psychiatry
--- NOTE | 2017-02-03 14:41 | Cons- Psychiatry ---
Psychiatric Consult Date of Consult: 02/03/17 Reason for Consult: "confusion, depression, ETOH detox." History of Present Illness: Identifying Info: 46-year-old male presents to [facility] emergency department by ambulance post being found unresponsive at home. Admitted to medicine for alcohol detox. CC: (pt currently sedated) HPI: Information obtained from house staff and medical record. Patient has a history of alcohol abuse several years, at one point consuming over 30 cans of beer daily. He has had multiple detoxes in hospital and has maintained sobriety in the past for several months. At present reports consuming 6 drinks daily with last drink 02/01/17 at 2 PM. The patient was initially able to precipitate in care on admission was A/Ox3 however subsequently developed delirium scoring as high as 29 on the CIWA scale. He has been confused and responding to auidtory and visual hallucinations. He has been aggitated at time but responding to ativan well at present. PMH: Please see the H&P for a complete listing Diabetes mellitus, gastric bypass 13 years ago, discitis/spinal osteomyelitis L3 Past Psych History: -Outpatient Paxil from PCP [facility] from [phone] -Inpatient [facility] 2009 1 previous consult eval durring detox in 2014 Family Psych History: Unobtained Substance History Current ETOH, 6 drinks daily. Sober from January - August 2016 Former Zolpidem abuse, has not used since 2012 -Treatment Previously Naltrexone tx Detox at [facility] last year IOP, date? Detox at in 10/2014 & on CPS 2010 Previous AA participant Family Substance History: Ex- ETOH Social: Lives with 2 adoptive sons, one with autism age 12 and one with ADHD age 13, at a house with his mother who lives upstairs. 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 Abuse/Trauma: Unobtained Current Home Psychotropic Medications: Paxil 20mg daily Current Hospital Psychotropic Medications: Med Lorazepam 2 MG PO Q6H 02/01/17 2115 Lorazepam IV Q1P PRN 02/02/17 0830 Paroxetine HCl 20 MG PO DAILY 02/02/17 1000 Allergies: Coded Allergies: No Known Allergies (05/04/16) Current Medications: Current Medications Sig/Diogo Start time Last Medication Dose Route Stop Time Status Admin Acetaminophen 650 MG Q6P PRN 02/02 1715 AC PO Acetaminophen 650 MG Q12P PRN 02/02 0945 DC PO Enoxaparin Sodium 40 MG DAILY 02/02 1000 AC 02/03 SC 0837 Ferrous Sulfate 325 MG DAILY 02/02 1000 AC 02/03 PO 0837 Folic Acid 1 MG DAILY 02/02 1000 AC 02/03 PO 0837 Insulin Aspart 0 TIDAC 02/02 0800 AC 02/02 SC 1702 Lisinopril 20 MG DAILY 02/02 1000 AC 02/03 PO 0844 Lorazepam 2 MG ONCE ONE 02/02 2345 DC 02/02 IM 02/02 2346 2345 Lorazepam 0 Q1P PRN 02/02 0830 AC 02/03 IV 1217 Lorazepam 2 MG Q6H 02/01 2115 AC 02/03 PO 0839 Magnesium Oxide 400 MG ONE ONE 02/03 1400 DC PO 02/03 1401 Multivitamins 1 TAB DAILY 02/02 1000 AC 02/03 PO 0838 Paroxetine HCl 20 MG DAILY 02/02 1000 AC 02/03 PO 0838 Patient Medication 1 ED .STK-MED ONE 02/03 1341 DC Teaching ED 02/03 1342 Phenol 2 SPRAY Q2P PRN 02/02 0100 AC 02/02 EXT 0201 Potassium Chloride 60 MEQ ONCE ONE 02/03 1345 DC PO 02/03 1346 Sodium Chloride 1,000 ML .Q10H 02/01 2100 DC 02/02 IV 02/02 2009 121 Thiamine HCl 100 MG DAILY 02/02 1000 AC 02/03 PO 0838 Tramadol HCl 50 MG Q6 PRN 02/02 1730 AC 02/03 PO 0038 Past History Past Medical History Neurological: spinal osteomyelitis at L3-L4 level EENT: NONE Cardiovascular: hypertension, hyperlipidemia Respiratory: NONE Gastrointestinal: NONE Hepatic: NONE Renal: NONE Musculoskeletal: CARPAL TUNNEL Psychiatric: alcohol dependence, anxiety, depression Endocrine: diabetes Blood Disorders: NONE Cancer(s): NONE CLERK 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/Reproductive: NONE Past Surgical History Surgical History: GASTRIC BYPASS ABDOMINOPLASTY carpal tunnel Psychosocial History Strengths/Capabilities: Treatment motivated, h/o periods of sobriety Physical Limitations (Interventions): Mutliple medical comorbidities Psychiatric Treatment History Psych Treatment Psychiatric Treatment Yes (as above) Diagnosis: Alcohol dependence, rule out anxiety disorder NOS, rule out depressive disorder NOS Risk Factors: high anxiety/distress, SA/MH hospitalized, substance abuse, poor impulse control, lack of outcome concern, male Substance Use/Abuse History Drug Use/Abuse Substances Used/Abused Yes (as above) Assessment/Plan Mental Status Mental Status Exam: Patient is unable to participate in interview Mental Status Exam Presentation/Appearance: Hospital garb, sleeping in bed Orientation: TRACY Sensorium: Sedated Eye contact: TRACY Affect: Flat Mood: TRACY Depression: TRACY Anxiety: TRACY Thought Content: TRACY staff reports repsonding to internal stimuli Thought Process: TRACY Speech: None Judgment: Impaired per staff report Insight:Impaired per staff report Cognition: Memory: TRACY Attention/Concentration: Poor Lab Results: Laboratory Tests QTc 481 today. 02/03/17 0700: Urine Color YEL, Urine Clarity CLEAR, Urine pH 6.5, Ur Specific [place] 1.010, Urine Protein NEG, Urine Ketones TRACE H, Urine Nitrite NEG, Urine Bilirubin NEG@ICTO, Urine Urobilinogen 2.0 H, Ur Leukocyte Esterase NEG, Ur Microscopic EXAM NOT REQUIRED, Urine Hemoglobin NEG, Urine Glucose NEG 02/03/17 0636: Anion Gap 10, Estimated GFR > 60, BUN/Creatinine Ratio 7.5, Magnesium 1.7, Total Bilirubin 4.2 H, Direct Bilirubin 2.3 H, AST 307 H, ALT 139 H, Alkaline Phosphatase 105, Total Protein 6.0 L, Albumin 2.7 L 02/02/17 0440: Lactic Acid 2.3 H, Troponin I 0.02 02/01/17 2302: Lactic Acid 6.1 H 02/01/17 2230: Urine Color YEL, Urine Clarity CLEAR, Urine pH 6.0, Ur Specific [place] 1.010, Urine Protein NEG, Urine Ketones NEG, Urine Nitrite NEG, Urine Bilirubin NEG, Urine Urobilinogen 0.2, Ur Leukocyte Esterase NEG, Ur Microscopic SEDIMENT EXAMINED, Urine RBC RARE, Ur Epithelial Cells RARE, Urine Hemoglobin TRACE- INTACT H, Urine Glucose 100 H 02/01/17 2230: Urine Opiates Screen < 100.00, Methadone Screen 56, Barbiturate Screen < 60, Ur Phencyclidine Scrn < 6.00, Amphetamines Screen < 100, U Benzodiazepines Scrn < 85, Urine Cocaine Screen < 50, Urine Cannabis Screen < 5.00, Urine Osmolality 394, Ur Random Creatinine 45.1, Ur Random Sodium 50, Ur Random Potassium 52.7, Fraction Sodium Excret 1.0 02/01/17 1853: Lactic Acid 9.3 H, PT 11.1, INR 1.06, APTT 29 02/01/17 1758: Anion Gap 23 H, Estimated GFR > 60, BUN/Creatinine Ratio 9.2, Glucose 196 H, Serum Osmolality 345 H, Calcium 8.0 L, Total Bilirubin 2.0 H, AST 555 H, ALT 171 H, Alkaline Phosphatase 120, Troponin I < 0.01, Total Protein 6.8, Albumin 3.3 L, Globulin 3.5, Albumin/Globulin Ratio 0.9 L, Amylase 42, Lipase 346 H, CBC w Diff NO MAN DIFF REQ, RBC 4.50 L, MCV 84.5, MCH 29.0, RDW 19.1 H, MPV 9.0, Gran % 57.3, Lymphocytes % 33.8, Monocytes % 8.5, Eosinophils % 0.1, Basophils % 0.3, Absolute Granulocytes 3.0, Absolute Lymphocytes 1.8, Absolute Monocytes 0.4, Absolute Eosinophils 0, Absolute Basophils 0, PUBS MCHC 34.3, Serum Alcohol 246.0, Acetone Level NEGATIVE Microbiology 02/03 0700 URINE ROUT: Urine Culture - RECD 02/02 829 LOWER RESP: Respiratory Culture - COLB 02/02 829 LOWER RESP: Gram Stain - COLB 02/02 2044 BLOOD: Blood Culture - RES 02/01 2003 BLOOD: Blood Culture - RES Diffential Diagnosis: Alcohol use disorder, severe Unspecified depressive disorder Unspecified anxiety disorder Impression: His 46-year-old male presents after losing consciousness in the context of alcohol intoxication, hyponatremia and lactic acidosis. He was intially A/Ox3 but developed delirium in the context of withdrawl. Today on approach pt is sedated and difficult to arouse. Will need to interview when less somnolent. He would likely benefit from ongoing dual diagnosis care post detox. Provisional Treatment Plan: 1. Continue CIWA protocol and medicate appropriately with Ativan. 2. Continue vitamin supplementation. 3. Consider restarting naltrexone if patient agrees to follow-up care. 4. Full psychiatric interview with recommendations to follow. 5. Appreciate social work referral for assistance in disposition planning. Thank you for including psychiatry in this case, we will continue to follow.
[2017-02-03 15:58] VITALS: BP 128/84
[2017-02-03 23:52] VITALS: BP 138/78
[2017-02-04 08:13] VITALS: BP 162/98
--- NOTE | 2017-02-04 09:33 | PN- Att Addend ---
Attending Addendum Attending Brief Note Patient is lethargic and sleepy this morning General Appearance: Tremors Skin: Grossly normal HEENT: PEERLA Neck: Supple, No JVD Cardiovascular: Regular Rate, Normal S1, Normal S2, No Murmurs Lungs: Clear to Auscultation, Normal Air Movement Abdomen: Normal Bowel Sounds, Soft, No Tenderness Neurological: Tremors Extremities: No Clubbing, No Cyanosis, No Edema Assessment Patient is having acute withdrawals and some hallucinations. He is currently on high-dose Ativan. We will continue to detox and observe. Metabolic acidosis, ketosis and elevated LFTs likely secondary to acute alcoholic intoxication and starvation ketosis. Plan Continue Ativan Low threshold for ICU transfers if requiring high-dose Ativan Replete potassium Accu-Cheks and insulin sliding scale Psych and social media campaign manager evaluation Continue current meds Current Medications Sig/Diogo Start time Last Medication Dose Route Stop Time Status Admin Acetaminophen 650 MG Q6P PRN 02/02 1715 AC PO Enoxaparin Sodium 40 MG DAILY 02/02 1000 AC 02/03 SC 0837 Ferrous Sulfate 325 MG DAILY 02/02 1000 AC 02/03 PO 0837 Folic Acid 1 MG DAILY 02/02 1000 AC 02/03 PO 0837 Insulin Aspart 0 TIDAC 02/02 0800 AC 02/02 SC 1702 Lisinopril 20 MG DAILY 02/02 1000 AC 02/03 PO 0844 Lorazepam 0 Q1P PRN 02/02 0830 AC 02/04 IV 0643 Lorazepam 2 MG Q6H 02/01 2115 AC 02/04 PO 0434 Magnesium Oxide 400 MG ONE ONE 02/03 1400 DC 02/03 PO 02/03 1401 1638 Multivitamins 1 TAB DAILY 02/02 1000 AC 02/03 PO 0838 Paroxetine HCl 20 MG DAILY 02/02 1000 AC 02/03 PO 0838 Patient Medication 1 ED .STK-MED ONE 02/03 1341 DC Teaching ED 02/03 1342 Phenol 2 SPRAY Q2P PRN 02/02 0100 AC 02/02 EXT 0201 Potassium Chloride 60 MEQ ONCE ONE 02/03 1345 DC 02/03 PO 02/03 1346 1639 Thiamine HCl 100 MG DAILY 02/02 1000 AC 02/03 PO 0838 Tramadol HCl 50 MG Q6 PRN 02/02 1730 AC 02/03 PO 0038 Laboratory Tests 02/04 0635 Chemistry Sodium (137 - 145 mmol/L) 133 L Potassium (3.5 - 5.1 mmol/L) 3.7 Chloride (98 - 107 mmol/L) 98 Carbon Dioxide (22 - 30 mmol/L) 27 Anion Gap (5 - 16) 8 BUN (9 - 20 mg/dL) 4 L Creatinine (0.7 - 1.2 mg/dL) 0.7 Estimated GFR (>60 ml/min) > 60 BUN/Creatinine Ratio (7 - 25 %) 5.7 L Magnesium (1.6 - 2.3 mg/dL) 1.7 Total Bilirubin (0.2 - 1.3 mg/dL) 3.8 H Direct Bilirubin (< 0.4 mg/dL) 2.4 H AST (17 - 59 U/L) 214 H ALT (21 - 72 U/L) 123 H Alkaline Phosphatase (< 127 U/L) 141 H Total Protein (6.3 - 8.2 g/dL) 6.2 L Albumin (3.5 - 5.0 g/dL) 2.8 L Vital Signs Date Time Temp Pulse Resp B/P B/P Pulse O2 O2 Flow FiO2 Mean Ox Delivery Rate 02/04 0813 98.7 98 20 162/98 95 Room Air 02/04 0645 90 20 02/04 0200 104 02/04 0045 102 20 02/03 2352 98.4 113 20 138/78 94 Room Air 02/03 2040 102 02/03 1940 98.2 108 18 02/03 1558 98.0 106 18 128/84 93
--- NOTE | 2017-02-04 10:26 | PN- Psychiatry ---
Assessment/Plan Impression: Identifying Info: 46-year-old male presents to [facility] emergency department by ambulance post being found unresponsive at home. Admitted to medicine for alcohol detox where he developed delirium, now improved. 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 He reports his parents who he lives with her currently taking care of his children. Most recently he states he has been drinking 3 beers a day down from a maximum consumption of over 30 beers a day in November of last year. In terms of aftercare the patient is hesitant to be part of any program that involves group therapy and is not open to residential treatment. Would be open to individual treatment but may require a higher level of care. Reports naltrexone has previously been helpful for him but he had a difficult time being compliant with this medication. He is interested in the long-acting IM formulation Vivitrol. Today he would be agreeable to an increase in his Paxil for baseline anxiety and addition of gabapentin as needed for breakthrough anxiety. He feels his anxiety is his primary problem which leads to his drinking. Brief ROS Gait: Unobserved Sleep: Adequate Appetite: did not assess OBJECTIVE Mental Status Exam Presentation/Appearance: Cooperative with evaluation. Hospital garb. Lying in bed. Calm Orientation: x4 Sensorium: Awake and alert Eye contact: Appropriate Affect: Somewhat blunted but congruent with stated mood Mood: "Ups and downs" Improved since yesterday Depression: 03/14 Anxiety: 02/11 Thought Content: - Denies SI/HI, AH/VH, PI. States and also believes they will not kill themselves. - Denies Hopeless/Helpless Thoughts Thought Process: Linear and goal directed Speech:Normal tone and rate Judgment: Intact Insight: Intact Cognition: Memory: Grossly intact Attention/Concentration: Grossly intact Abstractions:[place] Fund of Knowledge: Adequate MMSE: Did not assess ASSESSMENT His 46-year-old male with history of alcohol use disorders and multiple stressors including financial and familiar his children's behavioral issues and being the primary caregiver presents the context of alcohol withdrawal with delirium now resolved. He would benefit from medication to better control his anxiety and manage his alcohol cravings. He feels by mouth naltrexone was helpful in the past but he would likely have more success if he was on the long-acting injectable formulation. Differential diagnosis Alcohol use disorder, severe Alcohol withdrawl delirium, resolving Unspecified depressive disorder Unspecified anxiety disorder Suggestion: 1. Continue CIWA protocol and medicate appropriately with Ativan. 2. Continue vitamin supplementation. 3. Patient would like to return to naltrexone therapy with plan to switch to SYKES formulation, which is not available in inpatient formulary. Would recommend starting medication only after transaminitis resolves to avoid any additional hepatocellular injury. Additonally, would not recommend this medication if patient will continue on Ultram. Campral may be considered as an alternative but pt will need to be educated on potential risks/benefits. 4. Please increase Paxil to 30mg daily. 5. Please intitiate Gabapentin 300mg TID PRN for anxiety (off label use) prior to discharge. 6. Appreciate social work referral for assistance in disposition planning. Thank you for including psychiatry in this case, we will continue to follow. Subjective Subjective: as above Objective Last 24 Hrs of Vital Signs/I&O Current Medications Sig/Diogo Start time Last Medication Dose Route Stop Time Status Admin Acetaminophen 650 MG Q6P PRN 02/02 1715 AC PO Enoxaparin Sodium 40 MG DAILY 02/02 1000 AC 02/03 SC 0837 Ferrous Sulfate 325 MG DAILY 02/02 1000 AC 02/03 PO 0837 Folic Acid 1 MG DAILY 02/02 1000 AC 02/03 PO 0837 Insulin Aspart 0 TIDAC 02/02 0800 AC 02/02 SC 1702 Lisinopril 20 MG DAILY 02/02 1000 AC 02/03 PO 0844 Lorazepam 0 Q1P PRN 02/02 0830 AC 02/04 IV 0643 Lorazepam 2 MG Q6H 02/01 2115 AC 02/04 PO 0434 Magnesium Oxide 400 MG ONE ONE 02/03 1400 DC 02/03 PO 02/03 1401 1638 Multivitamins 1 TAB DAILY 02/02 1000 AC 02/03 PO 0838 Paroxetine HCl 20 MG DAILY 02/02 1000 AC 02/03 PO 0838 Patient Medication 1 ED .STK-MED ONE 02/03 1341 DC Teaching ED 02/03 1342 Phenol 2 SPRAY Q2P PRN 02/02 0100 AC 02/02 EXT 0201 Potassium Chloride 60 MEQ ONCE ONE 02/03 1345 DC 02/03 PO 02/03 1346 1639 Thiamine HCl 100 MG DAILY 02/02 1000 AC 02/03 PO 0838 Tramadol HCl 50 MG Q6 PRN 02/02 1730 AC 02/03 PO 0038 Laboratory Tests 02/04/17 0635: Anion Gap 8, Estimated GFR > 60, BUN/Creatinine Ratio 5.7 L, Magnesium 1.7, Total Bilirubin 3.8 H, Direct Bilirubin 2.4 H, AST 214 H, ALT 123 H, Alkaline Phosphatase 141 H, Total Protein 6.2 L, Albumin 2.8 L Vital Signs Date Time Temp Pulse Resp B/P B/P Pulse O2 O2 Flow FiO2 Mean Ox Delivery Rate 02/04 08 98.7 98 20 162/98 95 Room Air 02/04 0645 90 20 02/04 0200 104 02/04 0045 102 20 02/03 2352 98.4 113 20 138/78 94 Room Air 02/03 2040 102 02/03 1940 98.2 108 18 02/03 1558 98.0 106 18 128/84 93 Intake & Output 02/04 1600 02/04 0800 02/04 0000 Intake Total 680 800 Output Total 1025 Balance -345 800 Intake, Oral 680 800 Output, Urine 1025
--- NOTE | 2017-02-04 12:40 | PN- Housestaff ---
Subjective Follow-up For: Alcohol withdrawal Lactic acidosis Hyperbilirubinemia and Transaminitis Hyponatremia Subjective: Overnight patient required 4 mg of IV Ativan. This morning he is alert and awake but confused. He offers no complaints Review of Systems Constitutional: Reports: see HPI. Objective Last 24 Hrs of Vital Signs/I&O Vital Signs Date Time Temp Pulse Resp B/P B/P Pulse O2 O2 Flow FiO2 Mean Ox Delivery Rate 02/04 1014 98 162/98 02/04 0813 98.7 98 20 162/98 95 Room Air 02/04 0645 90 20 02/04 0200 104 / 0045 102 20 02/03 2352 98.4 113 20 138/78 94 Room Air 02/03 2040 102 02/03 1940 98.2 108 18 02/03 1558 98.0 106 18 128/84 93 Intake & Output 02/04 1600 02/04 0800 02/04 0000 Intake Total 680 800 Output Total 1025 Balance -345 800 Intake, Oral 680 800 Output, Urine 1025 Physical Exam General Appearance: Alert, Cooperative, No Acute Distress, confused Cardiovascular: tachycardia Lungs: Clear to Auscultation Abdomen: Normal Bowel Sounds, Soft, No Tenderness Neurological: Normal Speech, Strength at 5/5 X4 Ext, Sensation Intact, Cranial Nerves 3-12 NL, fine tremors of hands Extremities: No Edema Current Medications: Current Medications Sig/Diogo Start time Last Medication Dose Route Stop Time Status Admin Acetaminophen 650 MG Q6P PRN 02/02 1715 AC PO Enoxaparin Sodium 40 MG DAILY 02/02 1000 AC 02/04 SC 1013 Ferrous Sulfate 325 MG DAILY 02/02 1000 AC 02/04 PO 1012 Folic Acid 1 MG DAILY 02/02 1000 AC 02/04 PO 1012 Insulin Aspart 0 TIDAC 02/02 0800 AC 02/02 SC 1702 Lisinopril 20 MG DAILY 02/02 1000 AC 02/04 PO 1014 Lorazepam 0 Q1P PRN 02/02 0830 AC 02/04 IV 0643 Lorazepam 2 MG Q6H 02/01 2115 AC 02/04 PO 1013 Magnesium Oxide 400 MG ONE ONE 02/03 1400 DC 02/03 PO 02/03 1401 1638 Multivitamins 1 TAB DAILY 02/02 1000 AC 02/04 PO 1013 Paroxetine HCl 30 MG DAILY 02/05 1000 UNVr PO Paroxetine HCl 20 MG DAILY 02/02 1000 DC 02/04 PO 1012 Patient Medication 1 ED .STK-MED ONE 02/03 1341 DC Teaching ED 02/03 1342 Phenol 2 SPRAY Q2P PRN 02/02 0100 AC 02/02 EXT 0201 Potassium Chloride 60 MEQ ONCE ONE 02/03 1345 DC 02/03 PO 02/03 1346 1639 Thiamine HCl 100 MG DAILY 02/02 1000 AC 02/04 PO 1013 Tramadol HCl 50 MG Q6 PRN 02/02 1730 AC 02/03 PO 0038 Last 24 Hrs of Lab/Williams Results Last 24 Hrs of Labs/Mics: Laboratory Tests 02/04/17 0635: Anion Gap 8, Estimated GFR > 60, BUN/Creatinine Ratio 5.7 L, Magnesium 1.7, Total Bilirubin 3.8 H, Direct Bilirubin 2.4 H, AST 214 H, ALT 123 H, Alkaline Phosphatase 141 H, Total Protein 6.2 L, Albumin 2.8 L Orders CIWA Score (last 24 hrs): 17 this morning Assessment/Plan Assessment: Mr. Renee is a 46 year-old with past medical history significant for diabetes mellitus, hypertension, hyperlipidemia, alcohol abuse, anxiety, depression, gastric bypass 13 years ago, discitis/ spinal osteomyelitis L3L4 has been admitted on general medicine floor for: Problem list 1. Alcohol detox. Last drink on 02/01/2017. Serum alcohol 246. CIWA score 17 this morning 2. Lactic acidosis secondary to alcohol abuse 3. Hyperbilirubinemia and transaminitis secondary to alcohol abuse 4. Hyponatremia, sodium 133. 5. Hypokalemia, potassium 3.7 today Plan * Monitor vitals closely * Watch for DTs/withdrawal seizures * Low threshold for ICU transfer for Ativan drip if becomes more delirious and high CIWA scores requiring high dose of Ativan * Continue CIWA protocol, scheduled Ativan and Ativan as needed per CIWA * Monitor electrolytes daily and replete accordingly * Monitor LFTs daily * assembly line worker consult * Psych consult appreciated * Multivitamins/folic acid/thiamine * Holding statin for now * NovoLog insulin sliding scale while inpatient. Holding metformin and Onglyza * Subcutaneous Lovenox for DVT prophylaxis * Diabetic diet * Accu-Cheks before each meal and at bedtime * Full code Problem List: 1. Alcohol intoxication Pain Ratin Pain Location: none Pain Goal: Pain 4 or less Pain Plan: Ultram and Tylenol Tomorrow's Labs & Rationales: BEP and LFTs DVT/Prophylaxis: mechanical, pharmacological Consulting Request: Consulting Specialty: Psychiatry
--- NOTE | 2017-02-04 15:24 | NUR ---
Referral received on 02/02/17 via electronic supervisor order takers. This patient is a 46 year old man, admitted to the hospital on 02/01/17 with syncope in the setting of ETOH Dependence. Garcia was placed on the CIWA at time of admission, and has had some significant signs and symptoms of withdrawal; yesterday he was initally delerious, and later became sedated due to high requirements for ativan. Early today, Garcia was scoring a 17 for tremors, anxiety, agitation and orientation. I met with patient (and his parents) briefly this afternoon. Garcia was awake and alert, pleasant and engaged in interview. Garcia lives in a 2 family home; he lives with his 2 sons (ages 12 and 13) on one side, and his parents on another. Garcia is a single parent; his within the past 2 years. 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 He reports he will go back to AA; "It worked for me"; I have encouraged him to consider IOP here; he has done that before but did not care for it. He agrees to consider IOP and his mother has set the bar by saying there is to be no alcohol at the home. Garcia has agreed to onsider IOP and I will see him tomorrow to secure an intake for him.
[2017-02-04 16:38] VITALS: BP 142/80
[2017-02-04 23:48] VITALS: BP 118/80
[2017-02-05] VITALS (15 sets, daily range): BP systolic 118–144; BP diastolic 78–96
--- NOTE | 2017-02-05 08:54 | PN- Housestaff ---
Subjective Follow-up For: Alcohol withdrawal Lactic acidosis Hyperbilirubinemia and Transaminitis Hyponatremia Subjective: No overnight events. This morning patient is feeling improved. Offers no complaints. Review of Systems Constitutional: Reports: see HPI. Objective Last 24 Hrs of Vital Signs/I&O Vital Signs Date Time Temp Pulse Resp B/P B/P Pulse O2 O2 Flow FiO2 Mean Ox Delivery Rate 02/05 0813 97.8 84 18 128/84 93 Room Air / 0800 Room Air / 0800 97.8 84 18 128/84 05/ 0200 98.8 100 20 118/78 05/04 0100 98.7 110 20 120/80 05/04 0000 98.6 100 20 120/80 05/03 2348 99.1 100 20 118/80 96 Room Air 05/ 1638 98.2 94 20 142/80 92 Room Air / 1014 98 162/98 Intake & Output 02/05 1600 / 0800 05/ 0000 Intake Total 200 360 Output Total 400 750 Balance -200 -390 Intake, IV 10 Intake, Oral 200 350 Number 0 Bowel Movements Output, Urine 400 750 Physical Exam General Appearance: Alert, No Acute Distress Neck: Supple Cardiovascular: Regular Rate Lungs: Normal Air Movement Abdomen: Normal Bowel Sounds, Soft, No Tenderness Neurological: Normal Speech, Strength at 5/5 X4 Ext, Sensation Intact, Cranial Nerves 3-12 NL Extremities: No Edema Current Medications: Current Medications Sig/Diogo Start time Last Medication Dose Route Stop Time Status Admin Acetaminophen 650 MG Q6P PRN 02/02 1715 AC PO Enoxaparin Sodium 40 MG DAILY 02/02 1000 AC 02/04 SC 1013 Ferrous Sulfate 325 MG DAILY 02/02 1000 AC 02/04 PO 1012 Folic Acid 1 MG DAILY 02/02 1000 AC 02/04 PO 1012 Insulin Aspart 0 TIDAC 02/02 0800 AC 02/02 SC 1702 Lisinopril 20 MG DAILY 02/02 1000 AC 02/04 PO 1014 Lorazepam 0 Q1P PRN 02/02 0830 AC 02/05 IV 0101 Lorazepam 2 MG Q6H 02/01 2115 AC 02/05 PO 0847 Magnesium Oxide 400 MG ONE ONE 02/04 1245 DC 02/04 PO 02/04 1246 1445 Multivitamins 1 TAB DAILY 02/02 1000 AC 02/04 PO 1013 Paroxetine HCl 30 MG DAILY 02/05 1000 AC PO Paroxetine HCl 20 MG DAILY 02/02 1000 DC 02/04 PO 1012 Phenol 2 SPRAY Q2P PRN 02/02 0100 AC 02/02 EXT 0201 Potassium Chloride 40 MEQ ONCE ONE 02/04 1245 DC 02/04 PO 02/04 1246 1445 Thiamine HCl 100 MG DAILY 02/02 1000 AC 02/04 PO 1013 Tramadol HCl 50 MG Q6 PRN 02/02 1730 AC 02/03 PO 0038 Last 24 Hrs of Lab/Williams Results Last 24 Hrs of Labs/Mics: Laboratory Tests 02/05/17 0610: Anion Gap 9, Estimated GFR > 60, BUN/Creatinine Ratio 8.8, Magnesium 1.9, Total Bilirubin 3.3 H, Direct Bilirubin 1.9 H, AST 213 H, ALT 135 H, Alkaline Phosphatase 181 H, Total Protein 6.7, Albumin 3.2 L Orders CIWA Score (last 24 hrs): 5-9 Assessment/Plan Assessment: Mr. Renee is a 46 year-old with past medical history significant for diabetes mellitus, hypertension, hyperlipidemia, alcohol abuse, anxiety, depression, gastric bypass 13 years ago, discitis/ spinal osteomyelitis L3L4 has been admitted on general medicine floor for: Problem list 1. Alcohol detox. Last drink on 02/01/2017. Serum alcohol 246. CIWA score 5 this morning 2. Lactic acidosis secondary to alcohol abuse 3. Hyperbilirubinemia and transaminitis secondary to alcohol abuse 4. Hyponatremia, sodium 134. 5. Hypokalemia, potassium 4.6 today Plan * Monitor vitals closely * Watch for DTs/withdrawal seizures * Continue CIWA protocol, scheduled Ativan and Ativan as needed per CIWA * Monitor electrolytes daily and replete accordingly * Monitor LFTs daily * dairy husbandry worker consult * Psych consult appreciated * Multivitamins/folic acid/thiamine * Holding statin for now * NovoLog insulin sliding scale while inpatient. Holding metformin and Onglyza * Subcutaneous Lovenox for DVT prophylaxis * Diabetic diet * Accu-Cheks before each meal and at bedtime * Full code Problem List: 1. Alcohol intoxication Pain Ratin Pain Location: none Pain Goal: Remain pain free Pain Plan: tylenol Tomorrow's Labs & Rationales: bep, lfts DVT/Prophylaxis: pharmacological Consulting Request: Consulting Specialty: Psychiatry
--- NOTE | 2017-02-05 09:20 | PN- Att Addend ---
Attending Addendum Attending Brief Note Patient is awake and alert General Appearance: Tremors with outstretched hands Skin: Grossly normal HEENT: PEERLA Neck: Supple, No JVD Cardiovascular: Regular Rate, Normal S1, Normal S2, No Murmurs Lungs: Clear to Auscultation, Normal Air Movement Abdomen: Normal Bowel Sounds, Soft, No Tenderness Neurological: Tremors Extremities: No Clubbing, No Cyanosis, No Edema Assessment Improved withdrawal symptoms. He is currently on low-dose Ativan. We will continue to detox and observe. Metabolic acidosis, ketosis and elevated LFTs likely secondary to acute alcoholic intoxication and starvation ketosis. Plan Continue Ativan Replete potassium Accu-Cheks and insulin sliding scale Continue current meds Current Medications Sig/Diogo Start time Last Medication Dose Route Stop Time Status Admin Acetaminophen 650 MG Q6P PRN 02/02 1715 AC PO Enoxaparin Sodium 40 MG DAILY 02/02 1000 AC 02/05 SC 0900 Ferrous Sulfate 325 MG DAILY 02/02 1000 AC 02/05 PO 0900 Folic Acid 1 MG DAILY 02/02 1000 AC 02/05 PO 0901 Insulin Aspart 0 TIDAC 02/02 0800 AC 02/02 SC 1702 Lisinopril 20 MG DAILY 02/02 1000 AC 02/05 PO 0900 Lorazepam 1.5 MG Q6H 02/05 0915 AC PO Lorazepam 0 Q1P PRN 02/02 0830 AC 02/05 IV 0101 Lorazepam 2 MG Q6H 02/01 2115 DC 02/05 PO 0847 Magnesium Oxide 400 MG ONE ONE 02/04 1245 DC 02/04 PO 02/04 1246 1445 Multivitamins 1 TAB DAILY 02/02 1000 AC 02/05 PO 0900 Paroxetine HCl 30 MG DAILY 02/05 1000 AC 02/05 PO 0900 Paroxetine HCl 20 MG DAILY 02/02 1000 DC 02/04 PO 1012 Phenol 2 SPRAY Q2P PRN 02/02 0100 AC 02/02 EXT 0201 Potassium Chloride 40 MEQ ONCE ONE 02/04 1245 DC 02/04 PO 02/04 1246 1445 Thiamine HCl 100 MG DAILY 02/02 1000 AC 02/05 PO 0900 Tramadol HCl 50 MG Q6 PRN 02/02 1730 AC 02/03 PO 0038 Laboratory Tests 02/05 0610 Chemistry Sodium (137 - 145 mmol/L) 134 L Potassium (3.5 - 5.1 mmol/L) 4.6 Chloride (98 - 107 mmol/L) 96 L Carbon Dioxide (22 - 30 mmol/L) 29 Anion Gap (5 - 16) 9 BUN (9 - 20 mg/dL) 7 L Creatinine (0.7 - 1.2 mg/dL) 0.8 Estimated GFR (>60 ml/min) > 60 BUN/Creatinine Ratio (7 - 25 %) 8.8 Magnesium (1.6 - 2.3 mg/dL) 1.9 Total Bilirubin (0.2 - 1.3 mg/dL) 3.3 H Direct Bilirubin (< 0.4 mg/dL) 1.9 H AST (17 - 59 U/L) 213 H ALT (21 - 72 U/L) 135 H Alkaline Phosphatase (< 127 U/L) 181 H Total Protein (6.3 - 8.2 g/dL) 6.7 Albumin (3.5 - 5.0 g/dL) 3.2 L Vital Signs Date Time Temp Pulse Resp B/P B/P Pulse O2 O2 Flow FiO2 Mean Ox Delivery Rate 05/ 0900 84 128/84 05/04 0813 97.8 84 18 128/84 93 Room Air 05/04 0800 Room Air 05/04 0800 97.8 84 18 128/84 05/04 0200 98.8 100 20 118/78 05/04 0100 98.7 110 20 120/80 05/04 0000 98.6 100 20 120/80 05/03 2348 99.1 100 20 118/80 96 Room Air 05/03 1638 98.2 94 20 142/80 92 Room Air 05/03 1014 98 162/98
--- NOTE | 2017-02-05 10:35 | PN- Psychiatry ---
Assessment/Plan Impression: Identifying Info: 46-year-old male presents to [facility] emergency department by ambulance post being found unresponsive at home. Admitted to medicine for alcohol detox where he developed delirium, now improved. SUBJECTIVE Pt reports "I'm pretty good." Again discussed medication assisted treatment for ETOH including risks and benfits of treatment options. Today the patient reports he is interested in Campral as the idea of TID dosing is appealing to him. Brief ROS Gait: Unobserved Sleep: Adequate Appetite: Adequate OBJECTIVE Mental Status Exam Presentation/Appearance: Cooperative with evaluation. Hospital garb. Lying in bed. Calm Orientation: x4 Sensorium: Awake and alert Eye contact: Appropriate Affect: Full range, congruent Mood: "pretty good" Depression: Denies Anxiety: Only as it related to going home, low anxiety in hospital Thought Content: - Denies SI/HI, AH/VH, PI. States and also believes they will not kill themselves. - Denies Hopeless/Helpless Thoughts Thought Process: Linear and goal directed Speech:Normal tone and rate Judgment: Intact Insight: Intact Cognition: Memory: Grossly intact Attention/Concentration: Grossly intact Abstractions:[place] Fund of Knowledge: Adequate MMSE: Did not assess ASSESSMENT His 46-year-old male with history of alcohol use disorders and multiple stressors including financial and familiar his children's behavioral issues and being the primary caregiver presents the context of alcohol withdrawal with delirium now resolved. He would benefit from medication to better control his anxiety and manage his alcohol cravings. Today he feels he would like to learn more about Campral with the hope of starting therapy in the next day or two. Differential diagnosis Alcohol use disorder, severe Alcohol withdrawl delirium, resolved Unspecified depressive disorder Unspecified anxiety disorder Suggestion: 1. Continue CIWA protocol and medicate appropriately with Ativan. 2. Continue vitamin supplementation. 3. Patient provided with education sheet to read more about acamprosate. Patient will inform staff if he would like to trial medication. If he consents to medication please start acamprosate 666mg three times daily. 4. Continue Paxil 5. Please start Gabapentin 300mg TID PRN for anxiety (off label use) prior to discharge. 6. Appreciate social work referral for assistance in disposition planning, will plan for IOP level of care. Thank you for including psychiatry in this case, we will continue to follow. Subjective Subjective: as above Objective Last 24 Hrs of Vital Signs/I&O Current Medications Sig/Diogo Start time Last Medication Dose Route Stop Time Status Admin Acetaminophen 650 MG Q6P PRN 02/02 1715 AC PO Enoxaparin Sodium 40 MG DAILY 02/02 1000 AC 02/05 SC 0900 Ferrous Sulfate 325 MG DAILY 02/02 1000 AC 02/05 PO 0900 Folic Acid 1 MG DAILY 02/02 1000 AC 02/05 PO 0901 Insulin Aspart 0 TIDAC 02/02 0800 AC 02/02 SC 1702 Lisinopril 20 MG DAILY 02/02 1000 AC 02/05 PO 0900 Lorazepam 1.5 MG Q6H 02/05 0915 AC PO Lorazepam 0 Q1P PRN 02/02 0830 AC 02/05 IV 0101 Lorazepam 2 MG Q6H 02/01 2115 DC 02/05 PO 0847 Magnesium Oxide 400 MG ONE ONE 02/04 1245 DC 02/04 PO 02/04 1246 1445 Multivitamins 1 TAB DAILY 02/02 1000 AC 02/05 PO 0900 Paroxetine HCl 30 MG DAILY 02/05 1000 AC 02/05 PO 0900 Paroxetine HCl 20 MG DAILY 02/02 1000 DC 02/04 PO 1012 Phenol 2 SPRAY Q2P PRN 02/02 0100 AC 02/02 EXT 0201 Potassium Chloride 40 MEQ ONCE ONE 02/04 1245 DC 02/04 PO 02/04 1246 1445 Thiamine HCl 100 MG DAILY 02/02 1000 AC 02/05 PO 0900 Tramadol HCl 50 MG Q6 PRN 02/02 1730 AC 02/03 PO 0038 Laboratory Tests 02/05/17 0610: Anion Gap 9, Estimated GFR > 60, BUN/Creatinine Ratio 8.8, Magnesium 1.9, Total Bilirubin 3.3 H, Direct Bilirubin 1.9 H, AST 213 H, ALT 135 H, Alkaline Phosphatase 181 H, Total Protein 6.7, Albumin 3.2 L Vital Signs Date Time Temp Pulse Resp B/P B/P Pulse O2 O2 Flow FiO2 Mean Ox Delivery Rate 02/05 0900 84 128/84 02/05 0813 97.8 84 18 128/84 93 Room Air 02/05 0800 Room Air 02/05 0800 97.8 84 18 128/84 05/ 0200 98.8 100 20 118/78 05 0100 98.7 110 20 120/80 05/ 0000 98.6 100 20 120/80 02/04 2348 99.1 100 20 118/80 96 Room Air 02/04 1638 98.2 94 20 142/80 92 Room Air Intake & Output 02/05 1600 02/05 0800 02/05 0000 Intake Total 200 360 Output Total 400 750 Balance -200 -390 Intake, IV 10 Intake, Oral 200 350 Number 0 Bowel Movements Output, Urine 400 750
--- NOTE | 2017-02-05 13:51 | NUR ---
Met with patient again this am. He was awake and alert; pleasant and receptive to interview. He recalled our visit from yesterday; and is in agreement with referral to [facility]. He is able to recognize that his mothers demands of sobriety with consequences for not abiding, and identifies his 2 adolescent boys as motivators. I have secured an intake at the [facility] for 02/11/17 at 10:15 am. Patient participated in plan and is agreement.
[2017-02-06 06:23] VITALS: BP 144/86
[2017-02-06 08:00] VITALS: BP 144/86
--- NOTE | 2017-02-06 08:27 | PN- Psychiatry ---
Assessment/Plan Impression: Identifying Info: 46-year-old male presents to [facility] emergency department by ambulance post being found unresponsive at home. Admitted to medicine for alcohol detox where he developed delirium, now improved. SUBJECTIVE Pt reports "I'm good." Some anxiety r/t not knowing how things are going to go post discharge. Reports he would like to start Campral. Brief ROS Gait: Steady Sleep: Adequate Appetite: Adequate OBJECTIVE Mental Status Exam Presentation/Appearance: Cooperative with evaluation. Hospital garb. Lying in bed. Calm Orientation: x4 Sensorium: Awake and alert Eye contact: Appropriate Affect: Full range, congruent Mood: "pretty good" Depression: Denies Anxiety: Only as it related to going home, low anxiety in hospital Thought Content: - Denies SI/HI, AH/VH, PI. States and also believes they will not kill themselves. - Denies Hopeless/Helpless Thoughts Thought Process: Linear and goal directed Speech:Normal tone and rate Judgment: Intact Insight: Intact Cognition: Memory: Grossly intact Attention/Concentration: Grossly intact Abstractions:[place] Fund of Knowledge: Adequate MMSE: Did not assess ASSESSMENT His 46-year-old male with history of alcohol use disorders and multiple stressors including financial and familiar, his children's behavioral issues and being the primary caregiver presents the context of alcohol withdrawal with delirium now resolved. He would benefit from medication to better control his anxiety and manage his alcohol cravings. Differential diagnosis Alcohol use disorder, severe Alcohol withdrawl delirium, resolved Unspecified depressive disorder Unspecified anxiety disorder Suggestion: 1. Continue CIWA protocol and medicate appropriately with Ativan. 2. Continue vitamin supplementation. 3. Please start acamprosate 666mg three times daily. 4. Continue Paxil 5. Please start Gabapentin 300mg TID PRN for anxiety (off label use) prior to discharge. 6. has arranged for IOP intake appointment on 02/11/10 at 10:15 AM, please include in d/c instructions. Thank you for including psychiatry in this case, we will continue to follow. Subjective Subjective: as above Objective Last 24 Hrs of Vital Signs/I&O Current Medications Sig/Diogo Start time Last Medication Dose Route Stop Time Status Admin Acetaminophen 650 MG Q6P PRN 02/02 1715 AC PO Enoxaparin Sodium 40 MG DAILY 02/02 1000 AC 02/05 SC 0900 Ferrous Sulfate 325 MG DAILY 02/02 1000 AC 02/05 PO 0900 Folic Acid 1 MG DAILY 02/02 1000 AC 02/05 PO 0901 Insulin Aspart 0 TIDAC 02/02 0800 AC 02/05 SC 1752 Lisinopril 20 MG DAILY 02/02 1000 AC 02/05 PO 0900 Lorazepam 1.5 MG Q8 02/06 1400 AC PO Lorazepam 1.5 MG Q6H 02/05 0915 DC 02/06 PO 0300 Lorazepam 0 Q1P PRN 02/02 0830 AC 02/05 IV 1107 Lorazepam 2 MG Q6H 02/01 2115 DC 02/05 PO 0847 Multivitamins 1 TAB DAILY 02/02 1000 AC 02/05 PO 0900 Paroxetine HCl 30 MG DAILY 02/05 1000 AC 02/05 PO 0900 Patient Medication 1 ED .STK-MED ONE 02/05 1356 IA Teaching ED 02/05 1357 Phenol 2 SPRAY Q2P PRN 02/02 0100 AC 02/02 EXT 0201 Thiamine HCl 100 MG DAILY 02/02 1000 AC 02/05 PO 0900 Tramadol HCl 50 MG Q6 PRN 02/02 1730 AC 02/05 PO 2212 Laboratory Tests 02/06/17 0632: Anion Gap 8, Estimated GFR > 60, BUN/Creatinine Ratio 20.0, Total Bilirubin 0.4, Direct Bilirubin 0.2, AST 50, ALT 58, Alkaline Phosphatase 105, Total Protein 5.7 L, Albumin 3.0 L Vital Signs Date Time Temp Pulse Resp B/P B/P Pulse O2 O2 Flow FiO2 Mean Ox Delivery Rate 02/06 0623 98.0 84 20 144/86 97 Room Air 02/05 2241 97.4 96 20 134/78 94 Room Air 05/ 1850 98.1 100 18 144/88 94 Room Air 05/ 1600 98.0 90 20 140/80 05/04 1542 98.7 90 18 140/96 97 05/04 1537 98.0 90 20 140/80 05/04 1536 98.0 90 20 140/80 05/04 1400 98.1 87 18 136/82 05/04 1400 98.1 87 18 136/82 05/04 1200 98.2 91 20 134/82 05/04 1200 98.2 91 20 134/82 05/04 1049 98.0 93 20 140/80 96 Room Air 05/ 1000 98.0 93 20 140/80 02/05 0900 84 128/84 Intake & Output 02/06 1600 02/06 0800 02/06 0000 Intake Total 300 300 Output Total Balance 300 300 Intake, Oral 300 300 Number 2 1 Bowel Movements
[2017-02-06] MEDS ORDERED: PAXIL20 M1 PO (09:26)
[2017-02-06] MEDS ORDERED: FOLIC ACID1 M1 PO (09:26)
[2017-02-06] MEDS ORDERED: VITAMIN B-1100 MG PO (09:27)
--- NOTE | 2017-02-06 09:33 | Patient Discharge Instructions ---
Discharge Instructions General Discharge Information You were seen/treated for: ALCOHOL WITHDRAWL Special Instructions: 1. Please followup with your PCP next week after DC Diet Continue normal diet: Yes Activity Full Activity/No Limits: No Acute Coronary Syndrome Inclusion Criteria At DC or during hospital stay patient has or had the following: ACS DIAGNOSIS No Discharge Core Measures Meds if any: Prescribed or Continued at Discharge Meds if any: NOT Prescribed or Continued at Discharge Congestive Heart Failure Inclusion Criteria At DC or during hospital stay patient has or had the following: CHF DIAGNOSIS No Discharge Core Measures Meds if any: Prescribed or Continued at Discharge Meds if any: NOT Prescribed or Continued at Discharge Cerebrovascular accident Inclusion Criteria At DC or during hospital stay patient has or had the following: CVA/TIA Diagnosis No Discharge Core Measures Meds if any: Prescribed or Continued at Discharge Meds if any: NOT Prescribed or Continued at Discharge Venous thromboembolism Inclusion Criteria VTE Diagnosis No VTE Type NONE VTE Confirmed by (Test) NONE Discharge Core Measures - Per Current guidelines, there needs to be overlap - treatment for the first 5 days of Warfarin therapy. - If discharged on Warfarin prior to 5 days of - overlap therapy, the patient will need to be - assessed for post discharge needs including - *Post discharge parental anticoagulation - *Warfarin and/or parental anticoagulation education - *Follow up date to check INR post discharge At least 5 days overlap therapy as Inpatient No Meds if any: Prescribed or Continued at Discharge Note: Overlap Therapy is Warfarin and Anticoagulant Meds if any: NOT Prescribed or Continued at Discharge
--- NOTE | 2017-02-06 09:39 | PN- Att Addend ---
Attending Addendum Attending Brief Note Patient is awake and alert General Appearance: Tremors with outstretched hands Skin: Grossly normal HEENT: [place] Neck: Supple, No JVD Cardiovascular: Regular Rate, Normal S1, Normal S2, No Murmurs Lungs: Clear to Auscultation, Normal Air Movement Abdomen: Normal Bowel Sounds, Soft, No Tenderness Neurological: Tremors Extremities: No Clubbing, No Cyanosis, No Edema Assessment Improved withdrawal symptoms. He is currently on low-dose Ativan. Metabolic acidosis, ketosis and elevated LFTs likely secondary to acute alcoholic intoxication and starvation ketosis. Will discharge on quick Ativan taper as outpatient. Plan By mouth Ativan taper for 3 days Replete potassium Continue current meds upon discharge Current Medications Sig/Diogo Start time Last Medication Dose Route Stop Time Status Admin Acetaminophen 650 MG Q6P PRN 02/02 1715 AC PO Enoxaparin Sodium 40 MG DAILY 02/02 1000 AC 02/05 SC 0900 Ferrous Sulfate 325 MG DAILY 02/02 1000 AC 02/05 PO 0900 Folic Acid 1 MG DAILY 02/02 1000 AC 02/05 PO 0901 Insulin Aspart 0 TIDAC 02/02 0800 AC 02/05 SC 1752 Lisinopril 20 MG DAILY 02/02 1000 AC 02/05 PO 0900 Lorazepam 1.5 MG Q8 02/06 1400 DC PO Lorazepam 1 MG Q8 02/06 1400 AC PO Lorazepam 1.5 MG Q6H 02/05 0915 DC 02/06 PO 0300 Lorazepam 0 Q1P PRN 02/02 0830 AC 02/05 IV 1107 Multivitamins 1 TAB DAILY 02/02 1000 AC 02/05 PO 0900 Paroxetine HCl 30 MG DAILY 02/05 1000 AC 02/05 PO 0900 Patient Medication 1 ED .STK-MED ONE 02/05 1356 CO Teaching ED 02/05 1357 Phenol 2 SPRAY Q2P PRN 02/02 0100 AC 02/02 EXT 0201 Thiamine HCl 100 MG DAILY 02/02 1000 AC 02/05 PO 0900 Tramadol HCl 50 MG Q6 PRN 02/02 1730 AC 02/05 PO 2212 Laboratory Tests 02/06 0632 Chemistry Sodium (137 - 145 mmol/L) 139 Potassium (3.5 - 5.1 mmol/L) 4.5 Chloride (98 - 107 mmol/L) 103 Carbon Dioxide (22 - 30 mmol/L) 29 Anion Gap (5 - 16) 8 BUN (9 - 20 mg/dL) 18 Creatinine (0.7 - 1.2 mg/dL) 0.9 Estimated GFR (>60 ml/min) > 60 BUN/Creatinine Ratio (7 - 25 %) 20.0 Total Bilirubin (0.2 - 1.3 mg/dL) 0.4 Direct Bilirubin (< 0.4 mg/dL) 0.2 AST (17 - 59 U/L) 50 ALT (21 - 72 U/L) 58 Alkaline Phosphatase (< 127 U/L) 105 Total Protein (6.3 - 8.2 g/dL) 5.7 L Albumin (3.5 - 5.0 g/dL) 3.0 L Vital Signs Date Time Temp Pulse Resp B/P B/P Pulse O2 O2 Flow FiO2 Mean Ox Delivery Rate 05/05 0623 98.0 84 20 144/86 97 Room Air 05/04 2241 97.4 96 20 134/78 94 Room Air 05/04 1850 98.1 100 18 144/88 94 Room Air 05/04 1600 98.0 90 20 140/80 05/04 1542 98.7 90 18 140/96 97 05/04 1537 98.0 90 20 140/80 05/04 1536 98.0 90 20 140/80 05/04 1400 98.1 87 18 136/82 05/04 1400 98.1 87 18 136/82 05/04 1200 98.2 91 20 134/82 05/04 1200 98.2 91 20 134/82 05/04 1049 98.0 93 20 140/80 96 Room Air 05/04 1000 98.0 93 20 140/80
[2017-02-06 10:25] VITALS: BP 144/86
[2017-02-06] MEDS ORDERED: LORAZEPAM1 M1 PO (10:56)
--- NOTE | 2017-03-04 15:02 | Discharge Summary ---
Visit Information Visit Dates Admission Date: 02/01/17 Discharge Date: 02/06/17 Hospital Course Course Attending Physician: ZEHRA ROSE MD Primary Care Physician: MARIO PRAJAPATI MD Consulting Request: Consulting Specialty: Psychiatry Hospital Course: 46 year-old with past medical history significant for diabetes mellitus, hypertension, hyperlipidemia, alcohol abuse, anxiety, depression, gastric bypass 13 years ago, discitis/ spinal osteomyelitis L3L4 admitted for Alcohol detoxification. Last drink on 02/01/2017. Serum alcohol 246 on admission. 1. Alcohol detox. patient had persistent high CIWA scores. He was managed on the floor with when necessary and scheduled Ativan. Patient successfully detoxed. He will follow outpatient IOP. 2. Lactic acidosis secondary to alcohol abuse. Resolved with IV fluids. 3. Hyperbilirubinemia and transaminitis secondary to alcohol abuse. Improved during the course of hospitalization. 4. Hyponatremia In the setting of dehydration that improved with IV fluids. Allergies: Coded Allergies: No Known Allergies (05/04/16) Disposition Summary Disposition Principal Diagnosis: alcohol detoxication Additional Diagnosis: lactic acidosis Alcoholic transaminitis Discharge Disposition: home or self care Discharge Instructions General Discharge Information Code Status: Full Code Patient's Diet: regular diet Patient's Activity: as tolerated Follow-Up Instructions/Appts: follow-up with IOP as outpatient Medications at Discharge Discharge Medications: Stop taking the following medications: Paroxetine HCl (Paroxetine HCl) 20 MG TABLET ORAL DAILY Qty = 90 Simvastatin (Simvastatin*) 40 MG TABLET ORAL DAILY Qty = 90 Continue taking these medications: Ferrous Sulfate (Ferrous Sulfate) 325 MG TABLET 325 Milligram ORAL DAILY Comments: Last Taken: 02/06/17 Time: 10:26A.M Lisinopril (Lisinopril) 20 MG TABLET 20 Milligram ORAL DAILY Qty = 90 Comments: Last Taken:02/06/17 Time:10:26A.M Multivitamin (Multi-Day Vitamins) 1 EACH TABLET 1 Tablet ORAL DAILY Comments: Last Taken: 02/06/17 Time: 10:26A.M Saxagliptin (Onglyza) 5 MG TABLET 5 Milligram ORAL DAILY Comments: NOT GIVEN IN HOSPITAL Metformin HCl (Metformin HCl) 1,000 MG TABLET 1 Tablet ORAL TWICE DAILY Qty = 60 Comments: Last Taken:NOT GIVEN THIS ADMISSION Time: Start taking the following new medications: Folic Acid (Folic Acid) 1 MG TABLET 1 Tablet ORAL DAILY Qty = 30 No Refills Comments: Last Taken:02/06/17 Time:10:26A.M Paroxetine HCl (Paxil) 20 MG TABLET 30 Milligram ORAL DAILY Qty = 30 No Refills Comments: Last Taken:02/06/17 Time:10:26A.M Thiamine HCl (Vitamin B-1) 100 MG TABLET 1 Tablet ORAL DAILY Qty = 30 No Refills Comments: Last Taken:02/06/17 Time:10:26A.M Lorazepam (Lorazepam) 1 MG TABLET 1 Tablet ORAL See Instructions Qty = 5 No Refills Instructions: PLEASE TAKE 2 TABS TODAY (7PM AND 3AM) 2 TABS TOMORROW EVERY 12 HOURS (THURSDAY 10 AM AND 10PM) AND ONLY 1 TAB NEXT DAY (THURSDAY, 10 AM) Comments: Last Taken:02/06/17 Time:11:45A.M Copies To: ALO BELL,MARIO Broussard MD Review Statement Documenting Attending: ZEHRA ROSE MD
== END 2017-02-06 14:03 | DRG 775 ==
LOC: ERH 17:14 → ERHI 18:44 → 1NO 18:44 → ENRESERV 19:52 → 1NO 20:46 → 2NB 02-05 18:39 → ENPENDDIS 02-06 11:58 → 2NB 02-06 14:03
PROVIDERS: Physician Assistant Medical; Student in an Organized Health Care Education/Training Program; ADMIT Internal Medicine Pulmonary Disease
DX: F10.232 Alcohol dependence with withdrawal with perceptual disturbance (principal); E87.2 Acidosis; E11.65 Type 2 diabetes mellitus with hyperglycemia; K70.10 Alcoholic hepatitis without ascites; Z98.84 Bariatric surgery status; E78.5 Hyperlipidemia, unspecified; E87.1 Hypo-osmolality and hyponatremia; I10 Essential (primary) hypertension; F32.9 Major depressive disorder, single episode, unspecified; F41.9 Anxiety disorder, unspecified; E87.6 Hypokalemia; Y90.8 Blood alcohol level of 240 mg/100 ml or more; Z79.84 Long term (current) use of oral hypoglycemic drugs
CPT/HCPCS: 1NP; 2NBP; 84133; 84300; 36415; 74177; 80307; 81001; 81003; 82436; 82570; 87040; 87070; 87086; 93005; 93010; 96374; 97110-GO; 97116-GO; 97161-GP; 97530-GO; G0480; J1650; J3490; J7060